=== PATIENT | male | born 1960 | race American Indian/Alaskan Native ===

== ENCOUNTER 2016-03-11 10:56 | Inpatient (IN) | payer MEDICARE, OTHER ==
[2016-03-11] MEDS ORDERED: ASPIRIN PO ONE (11:53)
[2016-03-11] MEDS ORDERED: ATIVAN PO ONE (12:04)
[2016-03-11] MEDS ORDERED: NITRO-BID 2% TP ONE (12:05)
[2016-03-11 12:35] LABS: Basophils % (Auto) 0.6 % (0.0-1.8); Eosinophils % (Auto) 4.4 % (0.0-4.3); Hematocrit 41.8 % (35.5-45.6); Hemoglobin 13.8 gm/dl (11.8-15.2); Mean Corpuscular HGB Conc 33 % (32-34); Mean Corpuscular Hemoglobin 27 pg (28-32); Mean Corpuscular Volume 83 fl (84-94); Platelet Count 184 K/mm3 (140-440); Red Blood Count 5.07 M/mm3 (3.65-5.03); White Blood Count 5.4 K/mm3 (4.5-11.0)
[2016-03-11 12:47] LABS: INR 1.07 (0.87-1.13)
[2016-03-11 12:48] LABS: Partial Thromboplastin Time 30.6 Sec. (24.2-36.6)
--- NOTE | 2016-03-11 12:48 | XRay Report ---
Single view chest: Compared to 01/17/16. History: Hypertension. Findings: Marked cardiomegaly. Trachea is midline. Pulmonary venous congestion with very faint lower lobe infiltrates. Stable pacemaker. Normal CP angles. Impression: Probable early CHF.
[2016-03-11 12:53] LABS: Creatine Kinase MB 10.1 ng/mL (0.0-4.0)
[2016-03-11 12:54] LABS: Alanine Aminotransferase 19 units/L (7-56); Albumin/Globulin Ratio 1.3 %; Alkaline Phosphatase 79 units/L (35-129); Anion Gap 19 mmol/L; BUN/Creatinine Ratio 20.83; Bilirubin,Total 0.5 mg/dL (0.1-1.2); Blood Urea Nitrogen 25 mg/dL (9-20); Calcium 9.2 mg/dL (8.4-10.2); Carbon Dioxide 23 mmol/L (22-30); Creatine Kinase 461 units/L (55-170); Glucose 147 mg/dL (75-100); Potassium 3.6 mmol/L (3.6-5.0); Sodium 141 mmol/L (137-145); Total Protein 7.2 g/dL (6.3-8.2)
[2016-03-11 12:54] LABS: Magnesium 2.1 mg/dL (1.7-2.3)
[2016-03-11 12:55] LABS: Bilirubin,Direct < 0.2 mg/dL (0-0.2); Bilirubin,Indirect 0.3 mg/dL
--- NOTE | 2016-03-11 13:03 | Emergency Department Report ---
ED General Adult HPI - General Chief complaint: Chest Pain Stated complaint: DEFIBRILATOR MISFIRE Time Seen by Provider: 03/11/16 11:25 Source: EMS Mode of arrival: Stretcher Limitations: No Limitations - History of Present Illness Initial comments: The patient states that his AICD has gone off 3 times this morning. He states he was getting out of bed on the first occasion when it went off. He dropped to his knees. He stated he laid on the carpet and it went off another time. EMS was notified. The patient was transported to this facility for evaluation. He states that the defibrillator went off another time and route. I have obtained the 12-lead EKGs with the purported defibrillation. The patient's underlying rhythm may be a period of atrial flutter with a rate overall at about 100. It does look like the patient had to have recurrent beats. Follow- up by that there is a spike which the sales process manager has apparently circled. I'm not certain if this is a defibrillation. It would not seem appropriate that the patient would be defibrillated at the time of this "spike". I doubt if it is actually a defibrillation at all. In any case the 12-lead EKGs do not show evidence of ventricular tachycardia. The EKG that appears to show a period of flutter is timed at 10:42 AM. A second EKG time and 1038 appears to show a sinus rhythm with PVC and/or aberrant conduction. EKG obtained on arrival did show normal sinus rhythm NSR that the patient is having PVCs to include 2 sets of couplets. The patient did not lose consciousness with any of these events. -: This morning Improves with: none Worsens with: none Associated Symptoms: denies other symptoms Treatments Prior to Arrival: none - Related Data Home Medications Medication Instructions Recorded Confirmed Last Taken Lisinopril [Zestril TAB] 20 mg PO QDAY 01/17/16 01/17/16 Unknown Previous Rx's Medication Instructions Recorded Last Taken Type Allopurinol [Zyloprim] 100 mg PO QDAY #30 tablet 07/30/15 Unknown Rx Aspirin [Aspirin BABY CHEW TAB] 81 mg PO QDAY #30 tab.chew 07/30/15 Unknown Rx Carvedilol [Coreg] 25 mg PO BID #60 tablet 07/30/15 Unknown Rx Colchicine [Colcrys] 0.6 mg PO BID #14 tablet 12/31/15 Unknown Rx Furosemide [Lasix TAB] 40 mg PO BID #60 tablet 01/17/16 Unknown Rx oxyCODONE /ACETAMINOPHEN [Percocet 1 tab PO Q6HR PRN #20 tablet 01/17/16 Unknown Rx 5/325] Allergies Allergy/AdvReac Type Severity Reaction Status Date / Time No Known Allergies Allergy Verified 07/14/14 22:55 ED Review of Systems ROS: Stated complaint: DEFIBRILATOR MISFIRE Other details as noted in HPI Constitutional: denies: chills, fever Eyes: denies: eye pain, eye discharge, vision change ENT: denies: ear pain, throat pain Respiratory: denies: cough, shortness of breath, wheezing Cardiovascular: as per HPI. denies: chest pain, palpitations Endocrine: no symptoms reported Gastrointestinal: denies: abdominal pain, nausea, diarrhea Genitourinary: denies: urgency, dysuria Musculoskeletal: denies: back pain, joint swelling, arthralgia Skin: denies: rash, lesions Neurological: denies: headache, weakness, paresthesias Psychiatric: denies: anxiety, depression Hematological/Lymphatic: denies: easy bleeding, easy bruising ED Past Medical Hx - Past Medical History Hx Hypertension: Yes Hx CVA: No Hx Heart Attack/AMI: No Hx Congestive Heart Failure: Yes Hx Diabetes: No Hx Deep Vein Thrombosis: No Hx Pulmonary Embolism: No Hx GERD: Yes (peptic ulcers) Hx Liver Disease: No Hx Renal Disease: No Hx Sickle Cell Disease: No Hx Arthritis: Yes Hx Headaches / Migraines: No Hx Seizures: No Hx Kidney Stones: No Hx Psychiatric Treatment: No Hx Asthma: No Hx COPD: No Hx Tuberculosis: No Hx HIV: No Additional medical history: "Heart problems". defibrillator implanted. knee arthritis - Surgical History Hx Coronary Stent: No Hx Open Heart Surgery: No Hx Pacemaker: No Hx Internal Defibrillator: Yes (2012) Hx Cholecystectomy: No Hx Appendectomy: No Hx Breast Surgery: No Additional Surgical History: abd surgery, defib - Social History Smoking Status: Never Smoker Substance Use Type: None - Medications Home Medications: Home Medications Medication Instructions Recorded Confirmed Last Taken Type Allopurinol [Zyloprim] 100 mg PO QDAY #30 tablet 07/30/15 01/17/16 Unknown Rx Aspirin [Aspirin BABY CHEW TAB] 81 mg PO QDAY #30 tab.chew 07/30/15 01/17/16 Unknown Rx Carvedilol [Coreg] 25 mg PO BID #60 tablet 07/30/15 01/17/16 Unknown Rx Colchicine [Colcrys] 0.6 mg PO BID #14 tablet 12/31/15 01/17/16 Unknown Rx Furosemide [Lasix TAB] 40 mg PO BID #60 tablet 01/17/16 Unknown Rx Lisinopril [Zestril TAB] 20 mg PO QDAY 01/17/16 01/17/16 Unknown History oxyCODONE /ACETAMINOPHEN [Percocet 1 tab PO Q6HR PRN #20 tablet 01/17/16 Unknown Rx 5/325] ED Physical Exam - General Limitations: No Limitations General appearance: alert, in no apparent distress - Head Head exam: Present: atraumatic, normocephalic - Eye Eye exam: Present: normal appearance. Absent: scleral icterus - ENT ENT exam: Present: mucous membranes moist - Neck Neck exam: Present: normal inspection - Respiratory Respiratory exam: Present: normal lung sounds bilaterally. Absent: respiratory distress - Cardiovascular Cardiovascular Exam: Present: regular rate, normal rhythm. Absent: systolic murmur, diastolic murmur, rubs, gallop - GI/Abdominal GI/Abdominal exam: Present: soft, normal bowel sounds. Absent: distended, tenderness, guarding, rebound, rigid - Rectal Rectal exam: Present: deferred - Extremities Exam Extremities exam: Present: normal inspection, normal capillary refill. Absent: joint swelling, calf tenderness - Back Exam Back exam: Present: normal inspection - Neurological Exam Neurological exam: Present: alert, oriented X3, CN II-XII intact. Absent: motor sensory deficit - Psychiatric Psychiatric exam: Present: normal affect, normal mood - Skin Skin exam: Present: warm, dry, intact, normal color. Absent: rash ED Course Vital Signs 03/11/16 03/11/16 11:30 11:34 Temperature 98.0 F Pulse Rate 85 Respiratory 20 Rate Blood Pressure 182/109 O2 Sat by Pulse 100 100 Oximetry - Reevaluation(s) Reevaluation #1: Made arrangements for a defibrillator interrogation which should occur at or about 2 PM today. Spoke with the [employer] rep. I described the prehospital EKG findings. I discussed the patient's Reece with Dr. Lim the hospitalist. I have consult to Dr. Miles. 03/11/16 13:10 03/11/16 13:12 Do note that the patient's troponin is slightly elevated. I have reviewed the previous records of Dr. Hernandez who stated that the patient has a nonischemic cardiomyopathy. The patient states that he has had a prior cardiac catheterization. ED Medical Decision Making - Lab Data Result diagrams: 03/11/16 11:40 03/11/16 11:40 Laboratory Results - last 24 hr 03/11/16 03/11/16 03/11/16 11:40 11:40 11:40 WBC 5.4 RBC 5.07 H Hgb 13.8 Hct 41.8 MCV 83 L MCH 27 L MCHC 33 RDW 15.0 Plt Count 184 Lymph % (Auto) 19.1 [place] % (Auto) 9.3 H Eos % (Auto) 4.4 H Baso % (Auto) 0.6 Lymph # 1.0 L [place] # 0.5 Eos # 0.2 Baso # 0.0 Seg Neutrophils % 66.6 Seg Neutrophils # 3.6 PT 13.8 INR 1.07 APTT 30.6 Sodium 141 Potassium 3.6 Chloride 103.0 Carbon Dioxide 23 Anion Gap 19 BUN 25 H Creatinine 1.2 Estimated GFR > 60 BUN/Creatinine Ratio 20.83 Glucose 147 H Calcium 9.2 Magnesium Total Bilirubin 0.5 Direct Bilirubin < 0.2 Indirect Bilirubin 0.3 AST 25 ALT 19 Alkaline Phosphatase 79 Total Creatine Kinase 461 H CK-MB (CK-2) 10.1 H CK-MB (CK-2) Rel Index 2.1 Troponin T 0.034 H NT-Pro-B Natriuret Pep Total Protein 7.2 Albumin 4.0 Albumin/Globulin Ratio 1.3 Triglycerides 92 Cholesterol 86 LDL Cholesterol Direct 38 L HDL Cholesterol 30 L Cholesterol/HDL Ratio 2.86 03/11/16 11:45 WBC RBC Hgb Hct MCV MCH MCHC RDW Plt Count Lymph % (Auto) [place] % (Auto) Eos % (Auto) Baso % (Auto) Lymph # [place] # Eos # Baso # Seg Neutrophils % Seg Neutrophils # PT INR APTT Sodium Potassium Chloride Carbon Dioxide Anion Gap BUN Creatinine Estimated GFR BUN/Creatinine Ratio Glucose Calcium Magnesium 2.1 Total Bilirubin Direct Bilirubin Indirect Bilirubin AST ALT Alkaline Phosphatase Total Creatine Kinase CK-MB (CK-2) CK-MB (CK-2) Rel Index Troponin T NT-Pro-B Natriuret Pep 722.7 Total Protein Albumin Albumin/Globulin Ratio Triglycerides Cholesterol LDL Cholesterol Direct HDL Cholesterol Cholesterol/HDL Ratio - EKG Data -: EKG Interpreted by Me EKG shows normal: sinus rhythm - EKG Data Interpretation: other (left anterior fascicular block VH intraventricular conduction delay) - Radiology Data interpreted by me: S x-ray showed cardiomyopathy and possibly some CHF. Critical care attestation.: If time is entered above; I have spent that time in minutes in the direct care of this critically ill patient, excluding procedure time. ED Disposition Clinical Impression: AICD discharge, Nonischemic cardiomyopathy, History of atrial fibrillation, Uncontrolled hypertension CHF (congestive heart failure) Qualifiers: Congestive heart failure type: unspecified congestive heart failure type Congestive heart failure chronicity: chronic Qualified Code(s): I50.9 - Heart failure, unspecified Disposition: OP ADMITTED IP TO THIS HOSP Is pt being admited?: Yes Does the pt Need Aspirin: Yes Condition: Stable Instructions: Hypertension (ED) Time of Disposition: 13:16
[2016-03-11 13:06] LABS: Cholesterol 86 mg/dL (50-199); HDL Cholesterol 30 mg/dL (40-59); LDL Cholesterol,Direct 38 mg/dL (50-130); Triglycerides 92 mg/dL (2-149)
--- NOTE | 2016-03-11 16:05 | History and Physical Report ---
History of Present Illness Date of examination: 03/11/16 Chief complaint: Defibrillator firing History of present illness: Patient is a 55-year-old man with a history of AICD, pacemaker, nonischemic cardiomyopathy, CHF and hypertension who presents with acute episode of defibrillator firing 3 causing severe pains in carpet holt and falls and weakness and dizziness and headaches due to the shots. [employer] defibrillator was interrogated and he had 1 episode of sustained V. tach, 1 episode of V. fib and 1 episode of atrial fibrillation on 3 different occasions; they were all successfully defibrillated. Currently he is denying any chest pain or any other symptoms. He was seen by health benefits specialist Dr. Kary Miles week ago per patient. Past History Past Medical History: other (as hpi) Past Surgical History: Other (aicd, PUD surgery >20yrs ago) Social history: full code. denies: smoking, alcohol abuse, prescription drug abuse, IV drug use Family history: cancer, hypertension (mother) Medications and Allergies Allergies Allergy/AdvReac Type Severity Reaction Status Date / Time No Known Allergies Allergy Verified 07/14/14 22:55 Home Medications Medication Instructions Recorded Confirmed Last Taken Type Allopurinol [Zyloprim] 100 mg PO QDAY #30 tablet 07/30/15 01/17/16 Unknown Rx Aspirin [Aspirin BABY CHEW TAB] 81 mg PO QDAY #30 tab.chew 07/30/15 01/17/16 Unknown Rx Carvedilol [Coreg] 25 mg PO BID #60 tablet 07/30/15 01/17/16 Unknown Rx Colchicine [Colcrys] 0.6 mg PO BID #14 tablet 12/31/15 01/17/16 Unknown Rx Furosemide [Lasix TAB] 40 mg PO BID #60 tablet 01/17/16 Unknown Rx Lisinopril [Zestril TAB] 20 mg PO QDAY 01/17/16 01/17/16 Unknown History oxyCODONE /ACETAMINOPHEN [Percocet 1 tab PO Q6HR PRN #20 tablet 01/17/16 Unknown Rx 5/325] Active Meds: Active Medications Heparin Sodium (Porcine) (Heparin) 5,000 unit SUB-Q Q8HR JUD Review of Systems All systems: negative (as HPI and all other ROS reviewed and negative.) Exam - Physical Exam Narrative exam: GEN: WDWN, obese NAD, AWAKE, ALERT, ORIENTATED x 3 HEENT: NCAT, PERRL, EOMI, OP CLEAR NECK: SUPPLE, NO THYROMEGALY, equivocal JVD, NO LAD CVS: Regular irregular, NORMAL S1S2 LUNGS/CHEST: CTA B, NORMAL CHEST EXPANSION B, GOOD AIR ENTRY B ABD: SOFT NTND, GBS, NO REBOUND OR GUARDING EXT/SKIN: NO new SIGNIFICANT EDEMA OR RASH MSK: FROM X 4 EXTREMITIES NEURO: CN 2-12 GROSSLY INTACT, NO new FOCAL DEFICITS PSY: CALM - Constitutional Vitals: Temp Pulse Resp BP Pulse Ox 98.0 F 85 20 182/109 100 03/11/16 11:30 03/11/16 11:30 03/11/16 11:30 03/11/16 11:30 03/11/16 11:34 Results - Labs CBC & Chem 7: 03/11/16 11:40 03/11/16 11:40 Labs: Abnormal lab results 03/11/16 03/11/16 03/11/16 Range/Units 11:40 11:40 14:52 RBC 5.07 H (3.65-5.03) M/mm3 MCV 83 L (84-94) fl MCH 27 L (28-32) pg [place] % (Auto) 9.3 H (0.0-7.3) % Eos % (Auto) 4.4 H (0.0-4.3) % Lymph # 1.0 L (1.2-5.4) K/mm3 BUN 25 H (9-20) mg/dL Glucose 147 H (75-100) mg/dL Total Creatine Kinase 461 H (55-170) units/L CK-MB (CK-2) 10.1 H (0.0-4.0) ng/mL Troponin T 0.034 H 0.047 H D (0.00-0.029) ng/mL LDL Cholesterol Direct 38 L (50-130) mg/dL HDL Cholesterol 30 L (40-59) mg/dL - Imaging and Cardiology EKG: image reviewed Assessment and Plan Patient is a 55-year-old man with a history of AICD, pacemaker, nonischemic cardiomyopathy, CHF and hypertension who presents with acute episode of defibrillator firing 3 causing severe intermittent pains, falls, weakness, dizziness and headaches due to the shokcs. [employer] defibrillator was interrogated and he had 1 episode of sustained V. tach, 1 episode of V. fib and 1 episode of atrial fibrillation on 3 different occasions; they were all successfully defibrillated. Currently he is denying any chest pain or any other symptoms. He was seen by health benefits specialist Dr. Kary Miles week ago per patient. -VT -Vfib -Afib with RVR -Accelerated hypertension Watch on telemetry, Dr. Miles will determine if he needs antiarrhythmics
[2016-03-11] MEDS ORDERED: ASPIRIN ONE (18:29)
[2016-03-11] MEDS ORDERED: ATIVAN ONE (18:30)
[2016-03-11] MEDS ORDERED: ZESTRIL ONE (18:40)
[2016-03-11 20:05] LABS: Creatine Kinase MB 9.6 ng/mL (0.0-4.0)
[2016-03-11] MEDS: COREG PO SCH (21:57)
[2016-03-11] MEDS: LASIX PO SCH (21:57)
[2016-03-11] MEDS: ZESTRIL PO SCH (22:26)
--- NOTE | 2016-03-12 01:18 | Admit Criteria Form ---
Admission Criteria Documentation: CARDIOLOGY GRG Clinical Indications for Admission to Inpatient Care ( Place 'X' for any and all applicable criteria): Hospital admission is needed for appropriate care of the patient because of ANY ONE of the following (1): [ ] I. Hemodynamic instability as indicated by ALL of the following (1)(2)(3) (4)(5) [ ]a) Vital signs or other findings not as expected for chronic patient condition or baseline [ ]b) Instability indicated by ANY ONE of the following: [ ]i) Hypotension [ ]ii) Symptomatic Tachycardia unresponsive to treatment ( e.g., analgesia, fluids, sedation as indicated) [ ]iii) Inadequate perfusion indicated by ANY ONE of the following: [ ] 1) Lactic acidosis (> 2 mmol/L) [ ] 2) New abnormal capillary refill (> 3 seconds) [ ] 3) Reduced urine output [ ] 4) New altered mental status [ ]iv) Orthostatic vital sign changes unresponsive to treatment (e.g., fluids) [ ]v) IV inotropic or vasopressor medication required to maintain adequate blood pressure or perfusion [ ] II. Severe heart failure as indicated by ANY ONE of the following(17)(18) [ ]a) Respiratory distress [ ]b) Hypotension [ ]c) Anasarca (refractory to outpatient therapy) [ ]d) Cardiac arrhythmias of immediate concern [ ]e) Myocardial ischemia [ ] III. Cardiac arrhythmias or findings of immediate concern indicated by ANY ONE of the following (19)(20): [ ] a) Heart rhythms that are inherently dangerous or unstable indicated by ANY ONE of the following (21)(22)(23): [ ] i) Resuscitated ventricular fibrillation or cardiac arrest [ ] ii) Ventricular escape rhythm [ ] iii) Sustained ventricular tachycardia (30 seconds or more of ventricular rhythm at greater than 100 beats per minute) [ ] iv) Nonsustained ventricular tachycardia and ANY ONE of the following: [ ] 1) Suspected cardiac ischemia as cause or consequence of ventricular tachycardia [ ] 2) In setting of acute myocarditis [ ] b) Unstable cardiac conduction defects indicated by ANY ONE of the following(23)(24)(25) [ ] i) Type II second-degree atrioventricular block [ ]ii) Third-degree atrioventricular block [ ]iii) New-onset left bundle branch block with suspected myocardial ischemia [ ]c) Any heart rhythm and ANY ONE of the following (21)(22)(26)(27) (28) [ ] i) Continuous long-term ECG monitoring needed (e.g., initiation of drug requiring monitoring for more than 24 hours) [ ] ii) Patient has automatic implanted cardioverter defibrillator that is repeatedly firing, malfunctioning, or in need of immediate adjustment of settings beyond the scope of ambulatory or observation care [ ]d) Heart rhythms of concern due to ANY ONE of the following: [ ] i) Hypotension [ ] ii) Respiratory distress [ ] iii) Association with other significant symptoms (e.g., bradycardia with syncope or ongoing dizziness, supraventricular tachycardia with chest pain (14)(15)(17) [ ] IV. Monitoring for cardiac contusion beyond the scope of observation care needed [A](30)(31)(32) [ ] V. Surgical or device complication (e.g., valve replacement complication , pacemaker dysfunction) (35)(41)(44)(45)(46) [ ] . Inpatient palliative care needed. [B](49) Also use Inpatient Palliative Care Criteria [ ] VII. Nonbacterial thrombotic (marantic) endocarditis (36)(43)(47)(48) [X ] VIII. Cardiology condition, symptom, or finding for which emergency and observation care has failed or are not considered appropriate. [ ] IX. Acute valvular disease requiring inpatient as indicated by ANY ONE of the following (41) [ ]a) Acute valvular regurgitation (42) [ ]b) Noninfectious valvulitis (43) [ ]c) Obstructive valve thrombosis [ ]d) Paravalvular leak [ ]e) Other significant valvular disorder remaining after emergency or observation level of care (as appropriate) [ ]X. Pericardial disease requiring inpatient treatment as indicated by ANY ONE of the following (33)(34)(35)(36)(37) [ ]a) Suspected tamponade (38)(39)(40) [ ]b) Hemopericardium [ ]c) Other significant pericardial disorder remaining after emergency or observation level of care (as appropriate) [ ] XI. Cardiac ischemia beyond scope of emergency and observation care. [ ] XII. Hypertension requiring inpatient treatment as indicated by ANY ONE of the following (6)(7)(8) [ ]a) SBP greater than 220 mm Hg or DBP greater than 120 mmHg despite treatment [ ]b) SBP greater than 140 mm Hg or DBP greater than 100 mm Hg with evidence of acute end organ damage as indicated by ANY ONE of the following [ ] i) Altered mental status [ ] ii) Acute renal failure as indicated by new onset of ANY ONE of the following (9)(10)(11)(12)(13) [ ]1) 3-fold rise in serum creatinine from baseline [ ]2) Serum creatinine greater than 4 mg/dL ( 354 micromoles/L) with acute rise greater than 0.5 mg/dL (44.2 micromoles/L) [ ]3) Reduction of more than 75% in estimated glomerular filtration rate from baseline [ ]4) Estimated glomerular filtration rate less than 35 mL/min/1.73m2 (0.59 mL/sec/1.73m2) in child up to 18 years of age [ ]5) Cessation of urine output indicated by ALL of the following [ ]A. Adequate volume status [ ]B. Inadequate urine output as indicated by ANY ONE of the following [ ]a. Urine output less than 0.3 mL/kg/hr for 24 hours [ ]b. Anuria (urine output less than 0.1 mL/kg/hr) for 12 hours [ ] iii) Aortic dissection [ ] iv) Myocardial Ischemia [ ] v) Left ventricular heart failure [ ]vi) Retinal Hemorrhage [ ]vii) Other significant finding [ ]c) Hypertension in child requiring inpatient treatment as indicated by ALL of the following(14)(15)(16) [ ] i) Outpatient treatment not effective, not available, or not appropriate [ ]ii) SBP or DBP greater than 95th percentile for age [ ]iii) Evidence of acute end organ damage as indicated by ANY ONE of the following [ ]1) Altered mental status [ ]2) Acute renal failure as indicated by new onset of ANY ONE of the following(9)(10)(11)(12)(13) [ ]A. 3-fold rise in serum creatinine from baseline [ ]B. Serum creatinine greater than 4 mg/dL (354 micromoles/L) with acute rise greater than 0.5 mg/dL (44.2 micromoles/L) [ ]C. Reduction of more than 75% in estimated glomerular filtration rate from baseline [ ]D. Estimated glomerular filtration rate less than 35 mL/min/1.73m2 (0.59 mL/sec/1.73m2) in child up to 18 years of age [ ]E. Cessation of urine output indicated by ALL of the following [ ]a. Adequate volume status [ ]b. Inadequate urine output as indicated by ANY ONE of the following [ ]i) Urine output less than 0.3 mL/kg/hr for 24 hours [ ]ii) Anuria ( urine output less than 0.1 mL/kg/hr) for 12 hours [ ]3) Severe headache [ ]4) Visual disturbance [ ]5) Retinal hemorrhage [ ]6) Other significant finding [ ]XIII. Complications of transplanted heart indicated by ANY ONE of the following(61): [ ]a) Acute graft rejection requiring inpatient management (eg, intravenous immunosuppression)(62)(63) [ ]b) Acute graft heart failure indicated by ANY ONE of the following(64): [ ]i) Hemodynamic instability [ ]ii) Cardiac arrhythmias of immediate concern [ ]iii) Pulmonary edema that is very severe (eg, mechanical ventilation needed, imminent or likely, need for 100% oxygen to keep oxygen saturation above 90%) [ ]iv) Pulmonary edema that is persistent as indicated by ALL of the following: [ ]1) New need for oxygen therapy to keep oxygen saturation above 90% (or increased FiO2 need from baseline) [ ]2) Has not improved sufficiently with emergency department or observation care IV diuretics or other heart failure treatments[E] [ ]v) Altered mental status that is severe or persistent [ ]vi) Increased creatinine (new on laboratory test) with reduction of more than 50% in estimated glomerular filtration rate from baseline [ ]vii) Progressively (ongoing) rising creatinine (known from past laboratory test) with reduction of more than 25% in estimated glomerular filtration rate from baseline [ ]viii) Acute renal failure [ ]ix) Acute peripheral ischemia (eg, examination shows pulseless, cool, mottled, or cyanotic extremity) [ ]x) Pulmonary artery catheter monitoring needed [ ]xi) Other sign or symptom of heart failure requiring inpatient treatment (ie, too severe or not responsive to outpatient and observation care treatment) [ ]c) Infection requiring inpatient management (eg, Hemodynamic instability, need for intravenous antimicrobial treatment)(66)(67)(68)(69)(70) [ ]d) Cardiac allograft vasculopathy requiring inpatient management ( eg evidence of cardiac ischemia)(71) [ ]e) Other complication of transplanted heart (eg, stroke, severe pulmonary hypertension, severe valvular dysfunction) requiring inpatient management(72) The original [facility] [employer] content created by [facility] has been revised. The portions of the content which have been revised are identified through the use of italic text or in bold, and [facility] has neither reviewed nor approved the modified material. All other unmodified content is copyright [facility] [employer]. Please see references footnoted in the original [facility] [employer] edition 2016 Admission Criteria Met: Yes
[2016-03-12 02:00] LABS: Creatine Kinase MB 7.2 ng/mL (0.0-4.0)
[2016-03-12 07:11] LABS: Hematocrit 43.8 % (35.5-45.6); Hemoglobin 14.3 gm/dl (11.8-15.2); Mean Corpuscular HGB Conc 33 % (32-34); Mean Corpuscular Hemoglobin 27 pg (28-32); Mean Corpuscular Volume 83 fl (84-94); Platelet Count 186 K/mm3 (140-440); Red Cell Distribution Width 15.4 % (13.2-15.2); White Blood Count 5.7 K/mm3 (4.5-11.0)
[2016-03-12 07:54] LABS: Anion Gap 18 mmol/L; BUN/Creatinine Ratio 18.18; Blood Urea Nitrogen 20 mg/dL (9-20); Calcium 9.5 mg/dL (8.4-10.2); Carbon Dioxide 25 mmol/L (22-30); Chloride 102.6 mmol/L (98-107); Glucose 97 mg/dL (75-100); Potassium 3.9 mmol/L (3.6-5.0); Sodium 142 mmol/L (137-145)
[2016-03-12] MEDS: PERCOCET 5/325 PO PRN ×2 (09:08→16:06)
[2016-03-12] MEDS: ZESTRIL PO SCH (09:09)
[2016-03-12] MEDS: LASIX PO SCH (09:09)
[2016-03-12] MEDS: COREG PO SCH (09:09)
[2016-03-12] MEDS ORDERED: ZYLOPRIM PO SCH (10:00)
[2016-03-12] MEDS ORDERED: BABY ASPIRIN PO SCH (10:00)
[2016-03-12] MEDS: HEPARIN SUB-Q SCH ×2 (12:24→14:49)
[2016-03-12 12:51] VITALS: BP 125/85
--- NOTE | 2016-03-12 13:45 | Consultation ---
History of Present Illness Consult date: 03/12/16 Requesting physician: SAGAR VASQUEZ Consult reason: arrhythmia History of present illness: 55-year-old male with a past medical history of a cardiomyopathy ejection fraction 25-30%, moderate concentric left ventricular hypertrophy, moderate mitral regurgitation, dual chamber [employer] Sai cardiac defibrillator, hypertension who presents to [facility] emergency department after receiving cardiac defibrillator shocks. Interrogation of the patient's cardiac defibrillator revealed that he received 3 ICD shocks for appropriate therapy. The patient apparently had sustained VF. Interrogation of the patient's device revealed that all of his measurements intrinsic impedances and thresholds were within normal limits. In the emergency department his electrolytes were within normal limits. Patient reports he is doing nothing at the time when he developed these type of ventricular arrhythmias he stated that he was lying in bed and felt dizzy and lightheaded. Past History Past Medical History: arrhythmia, hypertension, other (as hpi) Past Surgical History: Other (aicd, PUD surgery >20yrs ago) Social history: full code. denies: smoking, alcohol abuse, prescription drug abuse, IV drug use Family history: cancer, hypertension (mother) Medications and Allergies Allergies Allergy/AdvReac Type Severity Reaction Status Date / Time No Known Allergies Allergy Verified 07/14/14 22:55 Home Medications Medication Instructions Recorded Confirmed Last Taken Type Allopurinol [Zyloprim] 100 mg PO QDAY #30 tablet 07/30/15 01/17/16 Unknown Rx Aspirin [Aspirin BABY CHEW TAB] 81 mg PO QDAY #30 tab.chew 07/30/15 01/17/16 Unknown Rx Carvedilol [Coreg] 25 mg PO BID #60 tablet 07/30/15 01/17/16 Unknown Rx Colchicine [Colcrys] 0.6 mg PO BID #14 tablet 12/31/15 01/17/16 Unknown Rx Furosemide [Lasix TAB] 40 mg PO BID #60 tablet 01/17/16 Unknown Rx Lisinopril [Zestril TAB] 20 mg PO QDAY 01/17/16 01/17/16 Unknown History oxyCODONE /ACETAMINOPHEN [Percocet 1 tab PO Q6HR PRN #20 tablet 01/17/16 Unknown Rx 5/325] Active Meds: Active Medications Allopurinol (Zyloprim) 100 mg PO QDAY [facility] Last Admin: 03/12/16 09:09 Dose: 100 mg Aspirin (Baby Aspirin) 81 mg PO QDAY [facility] Last Admin: 03/12/16 09:09 Dose: 81 mg Carvedilol (Coreg) 25 mg PO BID [facility] Last Admin: 03/12/16 09:09 Dose: 25 mg Furosemide (Lasix) 40 mg PO BID [facility] Last Admin: 03/12/16 09:09 Dose: 40 mg Heparin Sodium (Porcine) (Heparin) 5,000 unit SUB-Q Q8HR [facility] Last Admin: 03/12/16 12:24 Dose: Not Given Lisinopril (Zestril) 20 mg PO QDAY [facility] Last Admin: 03/12/16 09:09 Dose: 20 mg Oxycodone/Acetaminophen (Percocet 5/325) 1 tab PO Q6HR PRN PRN Reason: Pain Last Admin: 03/12/16 09:08 Dose: 1 tab Review of Systems Constitutional: no weight loss, no weight gain Ears, nose, mouth and throat: deferred Cardiovascular: lightheadedness, no chest pain, no orthopnea, no palpitations Respiratory: no cough, no hemoptysis, no shortness of breath Gastrointestinal: no abdominal pain, no nausea, no vomiting Musculoskeletal: no neck stiffness, no neck pain Integumentary: no rash, no pruritis Neurological: no convulsions, no aphasia, no change in speech Psychiatric: anxiety Endocrine: no cold intolerance, no heat intolerance Hematologic/Lymphatic: no easy bruising, no easy bleeding Physical Examination Vital Signs BP 172/105 03/11/16 11:09 General appearance: no acute distress HEENT: Positive: PERRL Neck: Positive: neck supple, trachea midline Cardiac: Positive: Reg Rate and Rhythm Lungs: Positive: Normal Exam, clear to auscultation Neuro: Positive: Grossly Intact Abdomen: Positive: Unremarkable, Soft, Active Bowel Sounds Male genitourinary: Positive: deferred Skin: Positive: Clear. Negative: Rash Extremities: Present: normal, warm. Absent: edema Results 03/12/16 06:16 03/12/16 06:16 Cardiac Enzymes 03/11/16 03/12/16 Range/Units 19:25 01:05 CK-MB (CK-2) 9.6 H 7.2 H (0.0-4.0) ng/mL CBC 03/12/16 Range/Units 06:16 WBC 5.7 (4.5-11.0) K/mm3 RBC 5.30 H (3.65-5.03) M/mm3 Hgb 14.3 (11.8-15.2) gm/dl Hct 43.8 (35.5-45.6) % Plt Count 186 (140-440) K/mm3 Comprehensive Metabolic Panel 03/12/16 Range/Units 06:16 Sodium 142 (137-145) mmol/L Potassium 3.9 (3.6-5.0) mmol/L Chloride 102.6 (98-107) mmol/L Carbon Dioxide 25 (22-30) mmol/L BUN 20 (9-20) mg/dL Creatinine 1.1 (0.8-1.5) mg/dL Glucose 97 (75-100) mg/dL Calcium 9.5 (8.4-10.2) mg/dL - Imaging and Cardiology Echo: report reviewed (ECHO 01/20: 1. The left ventricular ejection fraction is 25-30%, moderate concentric left ventricular hypertrophy, moderate mitral regurgitation) Cardiac cath: report reviewed ([facility] 03/21/10: Normal coronaries, codominant system) EKG interpretations - Telemetry EKG Rhythm: Sinus Rhythm Assessment and Plan 55-year-old male with moderate mitral regurgitation, moderate left ventricular hypertrophy, a nonischemic: Ejection fraction 25%, dual chamber cardiac defibrillator St. Sai, hypertension who presented with 3 ICD shocks. The patient was monitored overnight he has not had any recurrence of significant arrhythmias or cardiac ICD discharges. The patient is followed by Dr. Kail[facility]. He should follow-up with him in 2-3 weeks. The patient has a device check scheduled 09/04/2016 [facility]. I'm recommending that the patient continue his current medication regimen. We will not initiate any antiarrhythmics at this time. I' ve instructed the patient to walk around today to make sure that he is stable. If he has no recurrence of arrhythmias with walking around would recommend discharge home today.
--- NOTE | 2016-03-12 14:35 | Discharge Summary ---
Providers - Providers Date of Admission: 03/11/16 16:20 Attending physician: MARIEL LEE Primary care physician: AYANNA GREGORY MD Hospitalization Condition: Stable Hospital course: 55 YO male admitted for AICD firing. Pt admitted to telemetry. Pt convalesced well during hospital course with improvement in symptoms. Cardiology consulted. Pt medically optimized and back to usual state of health. Pt evaluated prior to discharge but no significant new physical exam findings. Pt discharged home and instructed to f/u pcp 1wk, cardiology as directed. 34 minutes dedicated to patient discharge and education. Disposition: DISCHARGED TO HOME OR SELFCARE - Discharge Diagnoses (1) AICD discharge Status: Acute (2) Acute on chronic systolic heart failure Status: Acute (3) Anxiety Status: Acute (4) Atrial fibrillation Status: Chronic Qualifiers: Atrial fibrillation type: A (5) Hyperlipidemia Status: Chronic Qualifiers: Hyperlipidemia type: H (6) Hypertension Status: Chronic Qualifiers: Hypertension type: H Core Measure Documentation - Palliative Care Palliative Care/ Comfort Measures: Not Applicable - Core Measures Any of the following diagnoses?: none Exam - Constitutional Vitals: Temp Pulse Resp BP Pulse Ox 97.6 F 68 14 125/85 95 03/12/16 08:40 03/12/16 12:50 03/12/16 12:50 03/12/16 12:50 03/12/16 10:00 General appearance: Present: no acute distress, well-nourished - EENT Eyes: Present: PERRL ENT: hearing intact, clear oral mucosa - Neck Neck: Present: supple, normal ROM - Respiratory Respiratory effort: normal Respiratory: bilateral: CTA - Cardiovascular Heart Sounds: Present: S1 & S2. Absent: rub, click - Extremities Extremities: pulses symmetrical, No edema Peripheral Pulses: within normal limits - Abdominal General gastrointestinal: Present: soft, non-tender, non-distended, normal bowel sounds Male genitourinary: Present: normal - Integumentary Integumentary: Present: clear, warm, dry - Musculoskeletal Musculoskeletal: gait normal, strength equal bilaterally - Psychiatric Psychiatric: appropriate mood/affect, intact judgment & insight - Neurologic Neurologic: CNII-XII intact, moves all extremities Plan Activity: advance as tolerated Follow up with: [facility] [Provider Group] - 7 Days PRIMARY CARE, [Primary Care Provider] - 3-5 Days
--- NOTE | 2016-03-21 08:35 | Query- Chest Pain ---
Juliet Wagoner Date:_03/21/16 [facility] Coordinator/CDS:Ignacia/Deep Sneed Phone#:__[phone] Exercise your independent professional judgment when responding to query. Questions asked do not imply a particular answer is desired or expected. We greatly appreciate your clarification on this issue. Clinical Documentation States: 55 Y/O Male admitted on 03/11/16 with history of AICD, pacemaker, CHF and HTN presents with acute episode of defibrillator firing x3 causing severe pains. Clinical Findings Show: Pacemaker interrogated showing 1 episode of Ventricular fibrillation, 1 episode of Ventricular tachycardia and 1 episode of atrial fibrillation on 3 different occasions Please document the etiology of Chest Pain: [ ] Myocardial Infarction [ ] Pneumonia [ ] Mediastinitis [ ] Costochondritis [ ] Pulmonary Embolism [ ] Coronary Artery Disease [ ] GERD [x ] Other:__AICD firing [ ] Comment/Explanation: Present on Admission: [ ] Yes (Y) [ ] Clinically undeterminable (W) [ ] No(N) Please document response in your Progress Notes and/or Discharge Summary and indicate if the condition was present on admission. MTDD
== END 2016-03-12 16:32 | disposition home or self-care (01) | DRG 314 ==
LOC: ED 10:56 → 4A 16:20
PROVIDERS: ADMIT Internal Medicine; ATTEND Internal Medicine
PROC: 4B02XTZ Measurement of Cardiac Defibrillator, External Approach (ICD-10-PCS; principal; 2016-03-11)
DX: T82.847A Pain due to cardiac prosthetic devices, implants and grafts, initial encounter (principal); I49.01 Ventricular fibrillation; I42.9 Cardiomyopathy, unspecified; I47.2 Ventricular tachycardia; I50.9 Heart failure, unspecified; K21.9 Gastro-esophageal reflux disease without esophagitis; M19.90 Unspecified osteoarthritis, unspecified site; I48.91 Unspecified atrial fibrillation; I11.0 Hypertensive heart disease with heart failure; Z82.49 Family history of ischemic heart disease and other diseases of the circulatory system; Z80.9 Family history of malignant neoplasm, unspecified
CPT/HCPCS: 36415; 71010; 80048; 80061; 80074; 82550; 82553; 83735; 83880; 84484; 85025; 85027; 85610; 85730; 93005; 93010; 94760

== ENCOUNTER 2016-03-27 14:07 | Emergency (ER) | payer MEDICARE, OTHER ==
[2016-03-27] MEDS ORDERED: APRESOLINE IV ONE (15:46)
[2016-03-27 16:02] VITALS: BP 108/62
[2016-03-27 16:13] LABS: Basophils % (Auto) 0.7 % (0.0-1.8); Eosinophils % (Auto) 3.3 % (0.0-4.3); Hematocrit 41.4 % (35.5-45.6); Hemoglobin 13.4 gm/dl (11.8-15.2); Mean Corpuscular HGB Conc 32 % (32-34); Mean Corpuscular Hemoglobin 27 pg (28-32); Mean Corpuscular Volume 82 fl (84-94); Platelet Count 154 K/mm3 (140-440); Red Blood Count 5.06 M/mm3 (3.65-5.03); Red Cell Distribution Width 15.4 % (13.2-15.2); White Blood Count 6.6 K/mm3 (4.5-11.0)
--- NOTE | 2016-03-27 16:15 | XRay Report ---
PORTABLE CHEST INDICATION: Chest pain. COMPARISON: 03/22/2016 FINDINGS: Portable, frontal chest radiograph again demonstrates mild cardiomegaly, slight aortic knob calcifications and left AICD with dual-chamber leads. No pleural effusions or CHF. Stable bones. EKG leads. CONCLUSION: Stable pacemaker and mild cardiomegaly, as described. Thank you for the opportunity to participate in this patient's care.
[2016-03-27] MEDS ORDERED: NORCO 5/325 PO ONE (16:28)
[2016-03-27 16:31] LABS: Anion Gap 17 mmol/L; Blood Urea Nitrogen 18 mg/dL (9-20); Calcium 9.2 mg/dL (8.4-10.2); Carbon Dioxide 23 mmol/L (22-30); Chloride 99.7 mmol/L (98-107); Glucose 108 mg/dL (75-100); Potassium 3.8 mmol/L (3.6-5.0); Sodium 136 mmol/L (137-145)
--- NOTE | 2016-03-27 16:44 | Emergency Department Report ---
HPI - General Chief Complaint: Chest Pain Time Seen by Provider: 03/27/16 15:49 - HPI HPI: The patient is a 55-year-old male who presents for evaluation of chest pain. The patient reports chest pain since 1 PM, mild, currently 3/10 in severity, right-sided, tightness like in quality, constant since onset. The patient denies fever, dyspnea, syncope, hemoptysis, unilateral leg swelling, recent immobilization, history of DVT or PE, recent cancer. ED Past Medical Hx - Past Medical History Previous Medical History?: Yes Hx Hypertension: Yes Hx CVA: No Hx Heart Attack/AMI: No Hx Congestive Heart Failure: Yes Hx Diabetes: No Hx Deep Vein Thrombosis: No Hx Pulmonary Embolism: No Hx GERD: Yes (peptic ulcers) Hx Liver Disease: No Hx Renal Disease: No Hx Sickle Cell Disease: No Hx Arthritis: Yes Hx Headaches / Migraines: No Hx Seizures: No Hx Kidney Stones: No Hx Psychiatric Treatment: No Hx Asthma: No Hx COPD: No Hx Tuberculosis: No Hx HIV: No Additional medical history: "Heart problems". defibrillator implanted. knee arthritis - Surgical History Hx Coronary Stent: No Hx Open Heart Surgery: No Hx Pacemaker: No Hx Internal Defibrillator: Yes (2012) Hx Cholecystectomy: No Hx Appendectomy: No Hx Breast Surgery: No Additional Surgical History: abd surgery, defib - Social History Smoking Status: Never Smoker Substance Use Type: None - Medications Home Medications: Home Medications Medication Instructions Recorded Confirmed Last Taken Type Allopurinol [Zyloprim] 100 mg PO QDAY #30 tablet 07/30/15 03/22/16 03/21/16 Rx Aspirin [Aspirin BABY CHEW TAB] 81 mg PO QDAY #30 tab.chew 07/30/15 03/22/16 Rx Colchicine [Colcrys] 0.6 mg PO BID #14 tablet 12/31/15 03/22/16 03/21/16 Rx Lisinopril [Zestril TAB] 2.5 mg PO QDAY 01/17/16 03/22/16 03/21/16 History AtorvaSTATin [Lipitor] 80 mg PO QHS 03/22/16 03/22/16 03/21/16 History Carvedilol [Coreg] 6.25 mg PO BID 03/22/16 03/22/16 03/21/16 History Furosemide [Lasix TAB] 40 mg PO QDAY 03/22/16 03/22/16 03/21/16 History Isosorb Dinit/Hydralazine [Bidil 1 each PO TID 03/22/16 03/22/16 03/21/16 History 20/37.5MG] ALPRAZolam [Xanax TAB] 0.25 mg PO Q12HR PRN #30 tablet 03/24/16 Unknown Rx amLODIPine [Norvasc] 10 mg PO DAILY tablet 03/24/16 Unknown Rx traMADol [Ultram 50 MG tab] 50 mg PO Q6HR PRN #10 tablet 03/27/16 Unknown Rx ED Review of Systems ROS: Stated complaint: CHEST PAIN Other details as noted in HPI Constitutional: denies: fever ENT: denies: throat or neck pain Respiratory: denies: cough, shortness of breath Cardiovascular: reports chest pain Endocrine: denies unexplained weight loss or gain Gastrointestinal: denies: abdominal pain, nausea Genitourinary: denies: dysuria Musculoskeletal: denies: leg swelling Skin: denies: rash Neurological: denies: headache Hematological/Lymphatic: denies: easy bleeding or easy bruising Psych: denies sadness or hopelessness Physical Exam - Physical Exam Vital Signs: Vital Signs 03/27/16 03/27/16 03/27/16 15:09 15:30 15:40 Pulse Rate 78 68 69 Respiratory 12 19 19 Rate Blood Pressure O2 Sat by Pulse 97 97 93 Oximetry 03/27/16 03/27/16 03/27/16 15:42 15:44 15:45 Pulse Rate 67 68 72 Respiratory 17 21 15 Rate Blood Pressure 108/62 O2 Sat by Pulse 95 93 94 Oximetry 03/27/16 03/27/16 03/27/16 15:46 15:48 15:50 Pulse Rate 68 66 76 Respiratory 21 22 19 Rate Blood Pressure 108/62 108/62 108/62 O2 Sat by Pulse 94 96 97 Oximetry 03/27/16 03/27/16 03/27/16 15:52 15:54 16:03 Pulse Rate 64 68 68 Respiratory 17 18 Rate Blood Pressure 108/62 108/62 108/62 O2 Sat by Pulse 95 96 Oximetry Physical Exam: General: well-nourished, well-developed, no acute distress Head: Normocephalic, atraumatic Eyes: normal sclera ENT: Mucous membranes are pink and moist Neck: trachea midline, neck supple, No neck stiffness, no cervical adenopathy Respiratory: Breath sounds equal bilaterally, no wheezing, rales, or rhonchi Cardio: S1 and S2 present, no murmurs, rubs, gallops, capillary refill is brisk Abdomen: Normoactive bowel sounds, soft abdomen, no rigidity, no guarding or rebound tenderness Musc: No pitting edema Skin: No rash Neuro: no facial drooping, normal speech Psych: Normal affect ED Course Vital Signs 03/27/16 03/27/16 03/27/16 15:09 15:30 15:40 Pulse Rate 78 68 69 Respiratory 12 19 19 Rate Blood Pressure O2 Sat by Pulse 97 97 93 Oximetry 03/27/16 03/27/16 03/27/16 15:42 15:44 15:45 Pulse Rate 67 68 72 Respiratory 17 21 15 Rate Blood Pressure 108/62 O2 Sat by Pulse 95 93 94 Oximetry 03/27/16 03/27/16 03/27/16 15:46 15:48 15:50 Pulse Rate 68 66 76 Respiratory 21 22 19 Rate Blood Pressure 108/62 108/62 108/62 O2 Sat by Pulse 94 96 97 Oximetry 03/27/16 03/27/16 03/27/16 15:52 15:54 16:03 Pulse Rate 64 68 68 Respiratory 17 18 Rate Blood Pressure 108/62 108/62 108/62 O2 Sat by Pulse 95 96 Oximetry ED Medical Decision Making - Lab Data Result diagrams: 03/27/16 15:56 03/27/16 15:56 - Medical Decision Making The patient was seen and examined by myself. The patient is placed on a barrel rifler hook and continuous pulse ox. On initial evaluation, the patient was found to be in no distress. EKG is unchanged from previous EKG one week ago. The patient is given a total of [place] for his pain. Labs and imaging are obtained. Chest x-ray is negative for pneumothorax, focal consolidation, pulmonary vascular congestion, pleural effusion, or other obvious acute cardiopulmonary disease process. Lab results were non-concerning including levels of troponin, WBC, hemoglobin, hematocrit, electrolytes, renal function. Medical records are reviewed and revealed that the patient received a stress test that was negative for ischemia, 2 weeks ago at [facility]. The patient was reevaluated and reported that their symptoms were markedly improved. The patient is stable for discharge with outpatient follow-up. The patient is given follow-up and return instructions. The patient expressed understanding and agreed with the plan. The patient is discharged in stable condition. Critical care attestation.: If time is entered above; I have spent that time in minutes in the direct care of this critically ill patient, excluding procedure time. ED Disposition Clinical Impression: Acute chest pain, Uncontrolled hypertension Disposition: DISCHARGED TO HOME OR SELFCARE Is pt being admited?: No Does the pt Need Aspirin: No Condition: Stable Instructions: Chest Pain (ED), Hypertension (ED) Prescriptions: traMADol [Ultram 50 MG tab] 50 mg PO Q6HR PRN #10 tablet PRN Reason: Pain Referrals: PRIMARY CARE, [Primary Care Provider] - 3-5 Days Time of Disposition: 16:29
[2016-03-28] MEDS ORDERED: NACL ONE (10:52)
== END 2016-03-27 17:08 | disposition home or self-care (01) ==
LOC: ED 14:07
DX: R07.9 Chest pain, unspecified (principal); I10 Essential (primary) hypertension; I50.9 Heart failure, unspecified; K21.9 Gastro-esophageal reflux disease without esophagitis; M19.90 Unspecified osteoarthritis, unspecified site; Z79.82 Long term (current) use of aspirin; Z95.810 Presence of automatic (implantable) cardiac defibrillator
CPT/HCPCS: 36415; 71010; 80048; 83880; 84484; 85025; 93005; 93010

== ENCOUNTER 2016-03-30 08:41 | Emergency (ER) | payer SELFPAY ==
[2016-03-30 10:10] LABS: Basophils % (Auto) 0.6 % (0.0-1.8); Eosinophils % (Auto) 4.5 % (0.0-4.3); Hematocrit 43.7 % (35.5-45.6); Mean Corpuscular HGB Conc 32 % (32-34); Mean Corpuscular Hemoglobin 27 pg (28-32); Mean Corpuscular Volume 83 fl (84-94); Platelet Count 139 K/mm3 (140-440); Red Blood Count 5.28 M/mm3 (3.65-5.03); Red Cell Distribution Width 14.9 % (13.2-15.2); White Blood Count 5.8 K/mm3 (4.5-11.0)
[2016-03-30 10:21] LABS: Anion Gap 18 mmol/L; Blood Urea Nitrogen 15 mg/dL (9-20); Calcium 9.4 mg/dL (8.4-10.2); Carbon Dioxide 23 mmol/L (22-30); Glucose 90 mg/dL (75-100); Potassium 4.3 mmol/L (3.6-5.0); Sodium 137 mmol/L (137-145)
[2016-03-30] MEDS ORDERED: BENADRYL IV ONE (10:53)
[2016-03-30] MEDS ORDERED: REGLAN IV ONE (10:53)
[2016-03-30] MEDS ORDERED: NACL ONE (11:25)
--- NOTE | 2016-03-30 12:01 | Cat Scan Report ---
CRANIAL CT SCAN: Serial contiguous axial images were obtained through the cranium. Intravenous contrast material was not administered. The ventricles are normal in size and appearance. There is no mass effect or midline shift. No areas of abnormally increased or decreased attenuation are seen. No mass lesion is seen. The mastoid air cells and visualized portions of the sinuses are normal. IMPRESSION: Cranial CT scan within normal limits.
--- NOTE | 2016-03-30 12:02 | Emergency Department Report ---
ED General Adult HPI - General Chief complaint: High BP Stated complaint: ELEVATED BLOOD PRESSURE 210/120 Time Seen by Provider: 03/30/16 09:46 Source: patient, RN notes reviewed, old records reviewed Mode of arrival: Ambulatory Limitations: No Limitations - History of Present Illness Initial comments: Cardiology: Dr. Jose Past medical history: Cardiomyopathy, ejection fraction of 25-30%, mitral regurgitation, cardiac defibrillator, hypertension. This is a 55-year-old male. He is previously unknown to me. Patient presents to the ER complaining of headache, dizziness, requesting refill on his blood pressure medication. The headache is throbbing, and bitemporal. It is not sudden or thunderclap in nature. It did not reach maximal intensity within an hour. It is not the worse headache of his life. He reports chronic headaches, and increase in headache frequency recently. There is no chest pain. There is no shortness of breath. He reports that his blood pressure felt elevated, and he went to the [facility] [place] , and found to be 210/160, and came to the ER for further evaluation and management. He did not pass out. There is no chest pain. There is no new or different shortness of breath. There is no ataxia. Headache is intermittent, and has no exacerbating or relieving factors. Dizziness is intermittent, has no exacerbating or relieving factors. -: Gradual Location: head Radiation: non-radiation Severity scale (0 -10): 0 Quality: aching Consistency: intermittent Improves with: none Worsens with: none Associated Symptoms: denies: confusion, chest pain, cough, diaphoresis, fever/ chills, loss of appetite, nausea/vomiting, shortness of breath, syncope, weakness - Related Data Home Medications Medication Instructions Recorded Confirmed Last Taken Lisinopril [Zestril TAB] 2.5 mg PO QDAY 01/17/16 03/22/16 03/21/16 Furosemide [Lasix TAB] 40 mg PO QDAY 03/22/16 03/22/16 03/21/16 Isosorb Dinit/Hydralazine [Bidil 1 each PO TID 03/22/16 03/22/16 03/21/16 20/37.5MG] Previous Rx's Medication Instructions Recorded Last Taken Type Allopurinol [Zyloprim] 100 mg PO QDAY #30 tablet 07/30/15 03/21/16 Rx Aspirin [Aspirin BABY CHEW TAB] 81 mg PO QDAY #30 tab.chew 07/30/15 03/21/16 Rx Colchicine [Colcrys] 0.6 mg PO BID #14 tablet 12/31/15 03/21/16 Rx ALPRAZolam [Xanax TAB] 0.25 mg PO Q12HR PRN #30 tablet 03/24/16 Unknown Rx amLODIPine [Norvasc] 10 mg PO DAILY tablet 03/24/16 Unknown Rx traMADol [Ultram 50 MG tab] 50 mg PO Q6HR PRN #10 tablet 03/27/16 Unknown Rx AtorvaSTATin [Lipitor] 80 mg PO QHS #30 tablet 03/30/16 Unknown Rx Carvedilol [Coreg] 6.25 mg PO BID #60 tablet 03/30/16 Unknown Rx Allergies Allergy/AdvReac Type Severity Reaction Status Date / Time No Known Allergies Allergy Verified 07/14/14 22:55 ED Review of Systems ROS: Stated complaint: ELEVATED BLOOD PRESSURE 210/120 Other details as noted in HPI Constitutional: denies: fever Eyes: denies: vision change ENT: denies: epistaxis Respiratory: denies: cough Cardiovascular: denies: chest pain Gastrointestinal: denies: abdominal pain Genitourinary: denies: dysuria Musculoskeletal: denies: back pain Skin: denies: lesions Neurological: headache Psychiatric: as per HPI. denies: depression ED Past Medical Hx - Past Medical History Previous Medical History?: Yes Hx Hypertension: Yes Hx CVA: No Hx Heart Attack/AMI: No Hx Congestive Heart Failure: Yes Hx Diabetes: No Hx Deep Vein Thrombosis: No Hx Pulmonary Embolism: No Hx GERD: Yes (peptic ulcers) Hx Liver Disease: No Hx Renal Disease: No Hx Sickle Cell Disease: No Hx Arthritis: Yes Hx Headaches / Migraines: No Hx Seizures: No Hx Kidney Stones: No Hx Psychiatric Treatment: No Hx Asthma: No Hx COPD: No Hx Tuberculosis: No Hx HIV: No Additional medical history: "Heart problems". defibrillator implanted. knee arthritis - Surgical History Past Surgical History?: Yes Hx Coronary Stent: No Hx Open Heart Surgery: No Hx Pacemaker: No Hx Internal Defibrillator: Yes (2012) Hx Cholecystectomy: No Hx Appendectomy: No Hx Breast Surgery: No Additional Surgical History: abd surgery, defib - Social History Smoking Status: Never Smoker Substance Use Type: Prescribed - Medications Home Medications: Home Medications Medication Instructions Recorded Confirmed Last Taken Type Allopurinol [Zyloprim] 100 mg PO QDAY #30 tablet 07/30/15 03/22/16 03/21/16 Rx Aspirin [Aspirin BABY CHEW TAB] 81 mg PO QDAY #30 tab.chew 07/30/15 03/22/16 Rx Colchicine [Colcrys] 0.6 mg PO BID #14 tablet 12/31/15 03/22/16 03/21/16 Rx Lisinopril [Zestril TAB] 2.5 mg PO QDAY 01/17/16 03/22/16 03/21/16 History Furosemide [Lasix TAB] 40 mg PO QDAY 03/22/16 03/22/16 03/21/16 History Isosorb Dinit/Hydralazine [Bidil 1 each PO TID 03/22/16 03/22/16 03/21/16 History 20/37.5MG] ALPRAZolam [Xanax TAB] 0.25 mg PO Q12HR PRN #30 tablet 03/24/16 Unknown Rx amLODIPine [Norvasc] 10 mg PO DAILY tablet 03/24/16 Unknown Rx traMADol [Ultram 50 MG tab] 50 mg PO Q6HR PRN #10 tablet 03/27/16 Unknown Rx AtorvaSTATin [Lipitor] 80 mg PO QHS #30 tablet 03/30/16 Unknown Rx Carvedilol [Coreg] 6.25 mg PO BID #60 tablet 03/30/16 Unknown Rx ED Physical Exam - General Limitations: No Limitations General appearance: alert, in no apparent distress - Head Head exam: Present: atraumatic, normocephalic - Eye Eye exam: Present: normal appearance, PERRL, EOMI. Absent: nystagmus - ENT ENT exam: Present: normal exam, normal orophraynx, mucous membranes moist, normal external ear exam - Neck Neck exam: Present: normal inspection, full ROM. Absent: tenderness, meningismus - Respiratory Respiratory exam: Present: normal lung sounds bilaterally. Absent: respiratory distress, wheezes, rales, rhonchi, stridor, chest wall tenderness - Cardiovascular Cardiovascular Exam: Present: regular rate, normal rhythm, normal heart sounds. Absent: bradycardia, tachycardia, irregular rhythm, systolic murmur, diastolic murmur, rubs, gallop - GI/Abdominal GI/Abdominal exam: Present: soft, normal bowel sounds. Absent: distended, tenderness, guarding, rebound, rigid, pulsatile mass, hernia - Rectal Rectal exam: Present: deferred - Extremities Exam Extremities exam: Present: normal inspection, full ROM, normal capillary refill , other (mild chronic right medial and lateral ankle tenderness. There is no palpable cord. There is negative Homans sign. Of note, patient has been having chronic arthritic pain in this right ankle since March 2015.). Absent : pedal edema, joint swelling, calf tenderness - Back Exam Back exam: Present: normal inspection, full ROM. Absent: tenderness, CVA tenderness (R), CVA tenderness (L), muscle spasm, paraspinal tenderness, vertebral tenderness - Neurological Exam Neurological exam: Present: alert, oriented X3, normal gait, other (Extraocular movements intact. Tongue midline. No facial droop. Facial sensation intact to light touch in the V1, V2, V3 distribution bilaterally. 5 and 5 strength in 4 extremities.. Sensation is intact to light touch in 4 extremities.). Absent : motor sensory deficit - Psychiatric Psychiatric exam: Present: normal affect, normal mood - Skin Skin exam: Present: warm, dry, intact, normal color. Absent: rash ED Course Vital Signs 03/30/16 03/30/16 03/30/16 08:50 08:55 10:06 Temperature 98.5 F 98.5 F Pulse Rate 79 79 Respiratory 20 20 Rate Blood Pressure 149/106 150/101 Blood Pressure 141/88 [Left] O2 Sat by Pulse 100 100 Oximetry 03/30/16 03/30/16 03/30/16 10:15 10:16 10:30 Temperature Pulse Rate Respiratory 18 Rate Blood Pressure 158/94 145/98 Blood Pressure [Left] O2 Sat by Pulse 99 Oximetry 03/30/16 03/30/16 03/30/16 12:13 12:30 13:00 Temperature Pulse Rate Respiratory Rate Blood Pressure 153/104 143/110 141/106 Blood Pressure [Left] O2 Sat by Pulse Oximetry 03/30/16 03/30/16 03/30/16 13:30 14:00 14:30 Temperature Pulse Rate Respiratory Rate Blood Pressure 133/92 146/99 127/78 Blood Pressure [Left] O2 Sat by Pulse Oximetry 03/30/16 15:06 Temperature Pulse Rate Respiratory Rate Blood Pressure 127/78 Blood Pressure [Left] O2 Sat by Pulse Oximetry - Reevaluation(s) Reevaluation #1: 03/30/16 12:00 differential diagnosis: Migraine headache, tension headache, cluster headache, hypertension related headache, posterior circulation thrombosis/dissection Assessment and plan: 55-year-old male with nonspecific headache, nonspecific dizziness, extensive cardiac history. Currently has a GCS of 15, with an NIH score of 0, walks with a steady gait. Headache historically does not sound consistent with subarachnoid hemorrhage. There is no neck pain. There is no neck stiffness. Given reported history of hypertension, nonspecific symptoms, we will obtain noncontrast CT scan of the head, and CT angiogram to assess for occult disease. He will be treated symptomatically for his headache with Reglan. Patient is trying to figure out which medication he needs a refill on. He states his smoke room operator discontinued his Bidil because it was giving him headaches. Troponin ordered before my evaluation, patient has no chest pain or shortness of breath. Has recently had an ACS risk stratification in the hospital. I don' t suspect acute coronary syndrome, I don't believe the patient requires repeat evaluation for acute coronary syndrome at this time. 03/30/16 12:02 Reevaluation #2: 03/30/16 14:07 repeat neurologic examination unremarkable and unchanged. Blood pressure is improved. Patient feels symptomatically improved. CT scan of the head and neck are negative for acute disease. Patient requests refill on Coreg , 6.25 mg twice daily, atorvastatin, 80 mg each night. Patient will be discharged with a one-month refill on these prescription medications, he is instructed to follow up with his outpatient smoke room operator. Return precautions were extensively reviewed. of note, on multiple re-evaluations, the patient is noted to be speaking on a cellular phone, walking around without difficulty, and in no acute distress. 03/30/16 14:11 ED Medical Decision Making - Lab Data Result diagrams: 03/30/16 09:55 03/30/16 09:55 Vital Signs 03/30/16 03/30/16 03/30/16 08:50 08:55 10:06 Temperature 98.5 F 98.5 F Pulse Rate 79 79 Respiratory 20 20 Rate Blood Pressure 149/106 150/101 Blood Pressure 141/88 [Left] O2 Sat by Pulse 100 100 Oximetry 03/30/16 03/30/16 03/30/16 10:15 10:16 10:30 Temperature Pulse Rate Respiratory 18 Rate Blood Pressure 158/94 145/98 Blood Pressure [Left] O2 Sat by Pulse 99 Oximetry Lab Results 03/30/16 03/30/16 Range/Units 09:55 09:55 WBC 5.8 (4.5-11.0) K/mm3 RBC 5.28 H (3.65-5.03) M/mm3 Hgb 14.0 (11.8-15.2) gm/dl Hct 43.7 (35.5-45.6) % MCV 83 L (84-94) fl MCH 27 L (28-32) pg MCHC 32 (32-34) % RDW 14.9 (13.2-15.2) % Plt Count 139 L (140-440) K/mm3 Lymph % (Auto) 18.0 (13.4-35.0) % [place] % (Auto) 10.8 H (0.0-7.3) % Eos % (Auto) 4.5 H (0.0-4.3) % Baso % (Auto) 0.6 (0.0-1.8) % Lymph # 1.0 L (1.2-5.4) K/mm3 [place] # 0.6 (0.0-0.8) K/mm3 Eos # 0.3 (0.0-0.4) K/mm3 Baso # 0.0 (0.0-0.1) K/mm3 Seg Neutrophils % 66.1 (40.0-70.0) % Seg Neutrophils # 3.8 (1.8-7.7) K/mm3 Sodium 137 (137-145) mmol/L Potassium 4.3 (3.6-5.0) mmol/L Chloride 100.0 (98-107) mmol/L Carbon Dioxide 23 (22-30) mmol/L Anion Gap 18 mmol/L BUN 15 (9-20) mg/dL Creatinine 1.2 (0.8-1.5) mg/dL Estimated GFR > 60 ml/min BUN/Creatinine Ratio 12.50 % Glucose 90 (75-100) mg/dL Calcium 9.4 (8.4-10.2) mg/dL Troponin T < 0.010 (0.00-0.029) ng/mL - EKG Data -: EKG Interpreted by Me EKG shows normal: sinus rhythm Rate: normal - EKG Data When compared to previous EKG there are: no significant change Interpretation: unchanged when compared t 03/30/16 12:03 normal sinus, 64 bpm, left axis deviation, nonspecific T-wave abnormality, atrial enlargement, abnormal EKG, not morphologically consistent with STEMI, QTC slightly widened. Appears morphologically unchanged from prior EKG from March 2016. - Radiology Data Radiology results: report reviewed, image reviewed Noncontrast CT scan of the head is negative. CT angiogram of the neck is negative. CT angiogram of the head is negative. Critical care attestation.: If time is entered above; I have spent that time in minutes in the direct care of this critically ill patient, excluding procedure time. ED Disposition Clinical Impression: Headache, Hypertension Disposition: DISCHARGED TO HOME OR SELFCARE Is pt being admited?: No Does the pt Need Aspirin: No Condition: Stable Instructions: Hypertension (ED) Additional Instructions: Continue current outpatient medications. Take your blood pressure medications as directed. Follow-up with your private smoke room operator or primary care doctor within the next 2-3 weeks. Long-term complications of hypertension/elevated blood pressure include stroke, heart attack, disability, , paralysis, permanent loss of quality of life. Therefore it is for important to take your outpatient blood pressure medications. Take Motrin, or ibuprofen as needed for pain every 6 hours with food. This can be alternated with acetaminophen. Return to the ER right away with new pain, worsening pain, migration of pain, fevers or chills, intractable nausea or vomiting, inability to tolerate liquid feeds. Prescriptions: AtorvaSTATin [Lipitor] 80 mg PO QHS #30 tablet Carvedilol [Coreg] 6.25 mg PO BID #60 tablet Referrals: PRIMARY CAREMD [Primary Care Provider] - 3-5 Days AARTI RENE MD [Staff Physician] - 3-5 Days
--- NOTE | 2016-03-30 13:07 | Cat Scan Report ---
CT angiography of the neck with 3-D reconstructed images. Findings: The common carotid arteries are normal in caliber throughout. The bifurcation of both common carotid arteries is widely patent. The internal carotid arteries are normal in caliber with no significant plaque or stenosis. The vertebral arteries are symmetrical and normal in caliber. Impression: Normal CT angiography of the neck.
--- NOTE | 2016-03-30 13:15 | Cat Scan Report ---
CT angiography of the brain with 3-D reconstructed images. Findings: The internal carotid arteries are normal in caliber bilaterally. The internal carotid bifurcations are normal. The anterior and middle cerebral arteries appear normal. The distal vertebral arteries are symmetrical and patent with normal appearance of the basilar artery. The posterior cerebral arteries are unremarkable. There is no evidence of aneurysm or AVM. Impression: Normal CT angiography of the brain.
[2016-03-30] MEDS ORDERED: COREG PO ONE (14:14)
[2016-03-30] MEDS ORDERED: ZESTRIL PO ONE (14:14)
[2016-03-30 14:47] VITALS: BP 127/78
== END 2016-03-30 14:50 | disposition home or self-care (01) ==
LOC: ED 08:41
DX: I10 Essential (primary) hypertension (principal); R51 Headache; I50.9 Heart failure, unspecified; K21.9 Gastro-esophageal reflux disease without esophagitis
CPT/HCPCS: 36415; 70450; 70496; 70498; 80048; 84484; 85025; 93005; 93010; 96374; 96375; 99284; J1200; J2765; Q9967

== ENCOUNTER 2016-04-03 10:27 | Emergency (ER) | payer SELFPAY ==
--- NOTE | 2016-04-03 10:57 | Emergency Department Report ---
Chief Complaint: Chest Pain Stated Complaint: CHEST PAIN Time Seen by Provider: 04/03/16 10:45 - HPI History of Present Illness: 55-year-old male presents today with chest pain since 8 AM despairing. Positive for history of similar symptoms and was diagnosed with anxiety attacks. Patient states that he has a defibrillator and a pacemaker. Patient states that since this morning she still can't lisinopril, carvedilol, 4 baby aspirins and alprazolam 0.25 mg. Also complaining of headache. Denies shortness of breath, nausea, vomiting, abdominal pain. - ROS Review of Systems: Per HPI - Exam Vital Signs: Vital Signs 04/03/16 10:39 Temperature 97.6 F Pulse Rate 80 Respiratory 20 Rate Blood Pressure 148/101 O2 Sat by Pulse 100 Oximetry Physical Exam: General: 55-year-old male in mild to moderate distress. Well-developed, well- nourished. CV: Regular rate and rhythm. Lungs: Clear to auscultation bilaterally. MSE screening note: Focused history and physical exam performed. Due to findings the following was ordered: ED Disposition for MSE Condition: Stable
[2016-04-03 11:19] LABS: Basophils % (Auto) 0.8 % (0.0-1.8); Eosinophils % (Auto) 2.9 % (0.0-4.3); Hematocrit 41.4 % (35.5-45.6); Hemoglobin 13.6 gm/dl (11.8-15.2); Mean Corpuscular HGB Conc 33 % (32-34); Mean Corpuscular Hemoglobin 27 pg (28-32); Mean Corpuscular Volume 81 fl (84-94); Platelet Count 154 K/mm3 (140-440); Red Blood Count 5.13 M/mm3 (3.65-5.03); Red Cell Distribution Width 15.4 % (13.2-15.2); White Blood Count 4.9 K/mm3 (4.5-11.0)
[2016-04-03 11:37] LABS: Creatine Kinase MB 8.3 ng/mL (0.0-4.0)
[2016-04-03 11:38] LABS: Anion Gap 20 mmol/L; BUN/Creatinine Ratio 17.69; Blood Urea Nitrogen 23 mg/dL (9-20); Calcium 9.2 mg/dL (8.4-10.2); Carbon Dioxide 23 mmol/L (22-30); Chloride 104.1 mmol/L (98-107); Creatine Kinase 305 units/L (55-170); Glucose 105 mg/dL (75-100); Lipase 26 units/L (13-60); Potassium 4.2 mmol/L (3.6-5.0); Sodium 143 mmol/L (137-145)
--- NOTE | 2016-04-03 12:02 | XRay Report ---
CHEST 2 VIEWS INDICATION: Chest pain. COMPARISON: 03/27/2016 FINDINGS: Frontal and lateral chest radiographs again suggest moderate cardiomegaly. Stable left sided dual chamber pacemaker. Slight left mid and right lower lung atelectasis. No pleural effusions or CHF. Aortic atherosclerotic calcifications. Stable bones. CONCLUSION: Slight atelectasis now noted with stable cardiomegaly and pacemaker, as described. Thank you for the opportunity to participate in this patient's care.
[2016-04-03 12:16] LABS: Cholesterol 82 mg/dL (50-199); HDL Cholesterol 38 mg/dL (40-59); LDL Cholesterol,Direct 34 mg/dL (50-130); Triglycerides 50 mg/dL (2-149)
--- NOTE | 2016-04-03 16:35 | Emergency Department Report ---
HPI - General Chief Complaint: Chest Pain Time Seen by Provider: 04/03/16 10:45 - HPI HPI: Room 3 The patient is a 55-year-old male presenting with a chief complaint of chest pain. The patient states this morning at 07:30 is lying in bed after taking his medications and he developed left chest tightness. Patient states he decided to get up to go eat but never was able to eat secondary to the tightness increasing. Patient states he turned decided to come to the ED or his tightness worsened even more. Patient admits to nausea but denies vomiting or diaphoresis. Patient says he developed some shortness of breath with the chest tightness. He states the chest tightness has resolved now he just has soreness in the left chest which she gives a score of 6/10. Patient states he had a cardiac catheterization approximately one week ago at [facility] Location: Chest Duration: Hours Quality: Tightness, soreness Severity: Currently 6/10 Modifying factors: [see above] Context: [see above] Mode of transportation: [not driving] ED Past Medical Hx - Past Medical History Hx Hypertension: Yes Hx Congestive Heart Failure: Yes Hx GERD: Yes (peptic ulcers) Hx Arthritis: Yes Additional medical history: "Heart problems". defibrillator implanted. knee arthritis - Surgical History Hx Internal Defibrillator: Yes (2012) Additional Surgical History: abd surgery, defib - Family History Family history: no significant - Social History Smoking Status: Never Smoker Substance Use Type: None - Medications Home Medications: Home Medications Medication Instructions Recorded Confirmed Last Taken Type Allopurinol [Zyloprim] 100 mg PO QDAY #30 tablet 07/30/15 03/22/16 03/21/16 Rx Aspirin [Aspirin BABY CHEW TAB] 81 mg PO QDAY #30 tab.chew 07/30/15 03/22/16 Rx Colchicine [Colcrys] 0.6 mg PO BID #14 tablet 12/31/15 03/22/16 03/21/16 Rx Lisinopril [Zestril TAB] 2.5 mg PO QDAY 01/17/16 03/22/16 03/21/16 History Furosemide [Lasix TAB] 40 mg PO QDAY 03/22/16 03/22/16 03/21/16 History Isosorb Dinit/Hydralazine [Bidil 1 each PO TID 03/22/16 03/22/16 03/21/16 History 20/37.5MG] ALPRAZolam [Xanax TAB] 0.25 mg PO Q12HR PRN #30 tablet 03/24/16 Unknown Rx amLODIPine [Norvasc] 10 mg PO DAILY tablet 03/24/16 Unknown Rx traMADol [Ultram 50 MG tab] 50 mg PO Q6HR PRN #10 tablet 03/27/16 Unknown Rx AtorvaSTATin [Lipitor] 80 mg PO QHS #30 tablet 03/30/16 Unknown Rx Carvedilol [Coreg] 6.25 mg PO BID #60 tablet 03/30/16 Unknown Rx Cyclobenzaprine [Flexeril] 10 mg PO TID PRN #10 tablet 04/03/16 Unknown Rx ED Review of Systems ROS: Stated complaint: CHEST PAIN Other details as noted in HPI Comment: All other systems reviewed and negative Constitutional: denies: diaphoresis Eyes: denies: eye pain, eye discharge, vision change ENT: denies: ear pain, throat pain Respiratory: shortness of breath Cardiovascular: chest pain Endocrine: no symptoms reported Gastrointestinal: nausea. denies: vomiting Genitourinary: denies: urgency, dysuria Musculoskeletal: myalgia. denies: back pain, joint swelling, arthralgia Skin: denies: rash, lesions Neurological: denies: headache, weakness, paresthesias Psychiatric: denies: anxiety, depression Hematological/Lymphatic: denies: easy bleeding, easy bruising Physical Exam - Physical Exam Vital Signs: Vital Signs 04/03/16 04/03/16 04/03/16 10:39 15:05 15:51 Temperature 97.6 F Pulse Rate 80 63 62 Respiratory 20 20 Rate Blood Pressure 148/101 128/96 O2 Sat by Pulse 100 100 Oximetry 04/03/16 04/03/16 04/03/16 15:52 15:54 15:56 Temperature Pulse Rate 71 60 66 Respiratory 12 17 22 Rate Blood Pressure 134/88 134/88 O2 Sat by Pulse 97 96 Oximetry 04/03/16 04/03/16 15:58 16:00 Temperature Pulse Rate 65 60 Respiratory 15 16 Rate Blood Pressure 134/88 133/86 O2 Sat by Pulse 98 97 Oximetry Physical Exam: GENERAL: The patient is well-developed well-nourished male lying on stretcher not appearing to be in acute distress. [] HEENT: Normocephalic. Atraumatic. Extraocular motions are intact. Patient has moist mucous membranes. NECK: Supple. Trachea midline CHEST/LUNGS: Clear to auscultation. There is no respiratory distress noted. HEART/CARDIOVASCULAR: Regular. There is no tachycardia. There is no gallop rub or murmur. ABDOMEN: Abdomen is soft, nontender. Patient has normal bowel sounds. There is no abdominal distention. SKIN: There is no rash. There is no edema. There is no diaphoresis. NEURO: The patient is awake, alert, and oriented. The patient is cooperative. The patient has normal speech MUSCULOSKELETAL: There is no evidence of acute injury. ED Course Vital Signs 04/03/16 04/03/16 04/03/16 10:39 15:05 15:51 Temperature 97.6 F Pulse Rate 80 63 62 Respiratory 20 20 Rate Blood Pressure 148/101 128/96 O2 Sat by Pulse 100 100 Oximetry 04/03/16 04/03/16 04/03/16 15:52 15:54 15:56 Temperature Pulse Rate 71 60 66 Respiratory 12 17 22 Rate Blood Pressure 134/88 134/88 O2 Sat by Pulse 97 96 Oximetry 04/03/16 04/03/16 15:58 16:00 Temperature Pulse Rate 65 60 Respiratory 15 16 Rate Blood Pressure 134/88 133/86 O2 Sat by Pulse 98 97 Oximetry - Consultations Consultation #1: 04/03/16 16:31 Cardiology paged 04/03/16 17:09 Case discussed with Jennie states she discussed the case with Dr. Brewer-ED lab values including troponins were discussed. She states the patient did not have a cardiac catheterization at [place] but did have a stress thallium performed 09/[address] Brewer says patient may be discharged home from the ED and keep his follow-up appointment with Dr. Damon CANELA Medical Decision Making - Lab Data Result diagrams: 04/03/16 11:06 04/03/16 11:06 Laboratory Tests 04/03/16 04/03/16 04/03/16 11:06 11:06 13:32 WBC 4.9 RBC 5.13 H Hgb 13.6 Hct 41.4 MCV 81 L MCH 27 L MCHC 33 RDW 15.4 H Plt Count 154 Lymph % (Auto) 21.5 [place] % (Auto) 9.8 H Eos % (Auto) 2.9 Baso % (Auto) 0.8 Lymph # 1.1 L [place] # 0.5 Eos # 0.1 Baso # 0.0 Seg Neutrophils % 65.0 Seg Neutrophils # 3.2 Sodium 143 Potassium 4.2 Chloride 104.1 Carbon Dioxide 23 Anion Gap 20 BUN 23 H Creatinine 1.3 Estimated GFR > 60 BUN/Creatinine Ratio 17.69 Glucose 105 H Calcium 9.2 Total Creatine Kinase 305 H CK-MB (CK-2) 8.3 H CK-MB (CK-2) Rel Index 2.7 Troponin T 0.034 H D 0.022 Triglycerides 50 Cholesterol 82 LDL Cholesterol Direct 34 L HDL Cholesterol 38 L Cholesterol/HDL Ratio 2.15 Lipase 26 - EKG Data -: EKG Interpreted by Me EKG shows normal: sinus rhythm Rate: normal - EKG Data When compared to previous EKG there are: no significant change Interpretation: unchanged when compared t (03/30/2016), other (PVC) - Radiology Data Radiology results: image reviewed (chest x-ray) interpreted by me: Chest [id number]. No focal infiltrates, no pneumothorax - Differential Diagnosis ACS, GERD, pericarditis, CHF Critical care attestation.: If time is entered above; I have spent that time in minutes in the direct care of this critically ill patient, excluding procedure time. ED Disposition Clinical Impression: Chest pain Disposition: DISCHARGED TO HOME OR SELFCARE Is pt being admited?: No Does the pt Need Aspirin: No Condition: Stable Instructions: Chest Pain (ED) Additional Instructions: Return to the emergency department immediately should you develop worsening symptoms, fever, inability to tolerate food or liquid or any other concerns. Prescriptions: Cyclobenzaprine [Flexeril] 10 mg PO TID PRN #10 tablet PRN Reason: Muscle Spasm Referrals: PRIMARY CARE, [Primary Care Provider] - 3-5 Days Time of Disposition: 17:21
[2016-04-03 17:29] VITALS: BP 149/97
== END 2016-04-03 17:29 | disposition home or self-care (01) ==
LOC: ED 10:27
DX: R07.89 Other chest pain (principal); I10 Essential (primary) hypertension; I50.9 Heart failure, unspecified; K21.9 Gastro-esophageal reflux disease without esophagitis; M19.90 Unspecified osteoarthritis, unspecified site
CPT/HCPCS: 36415; 71020; 80048; 80061; 82550; 82553; 83690; 84484; 85025; 93005; 93010; 99283

== ENCOUNTER 2016-04-11 06:25 | Inpatient (IN) | payer MEDICARE, OTHER ==
--- NOTE | 2016-04-11 07:26 | XRay Report ---
ROUTINE CHEST, TWO VIEWS: HISTORY: Shortness of breath. Mild cardiomegaly and pulmonary venous congestion are identified which have increased since 04/03/16. There is no evidence for pneumonia, CHF or pneumothorax. 2-lead pacemaker device remains in the same position. Normal bony thorax. Impression: Mild cardiomegaly and pulmonary venous congestion. IMPRESSION: Unremarkable chest x-ray.
[2016-04-11 07:36] LABS: Basophils % (Auto) 0.6 % (0.0-1.8); Eosinophils % (Auto) 3.3 % (0.0-4.3); Hematocrit 38.8 % (35.5-45.6); Hemoglobin 12.5 gm/dl (11.8-15.2); Mean Corpuscular HGB Conc 32 % (32-34); Mean Corpuscular Hemoglobin 26 pg (28-32); Mean Corpuscular Volume 81 fl (84-94); Platelet Count 169 K/mm3 (140-440); Red Blood Count 4.79 M/mm3 (3.65-5.03); Red Cell Distribution Width 15.2 % (13.2-15.2); White Blood Count 6.2 K/mm3 (4.5-11.0)
[2016-04-11 08:14] LABS: Anion Gap 20 mmol/L; BUN/Creatinine Ratio 15.45; Blood Urea Nitrogen 17 mg/dL (9-20); Calcium 9.3 mg/dL (8.4-10.2); Carbon Dioxide 21 mmol/L (22-30); Glucose 105 mg/dL (75-100); Potassium 4.2 mmol/L (3.6-5.0); Sodium 138 mmol/L (137-145)
--- NOTE | 2016-04-11 08:32 | Emergency Department Report ---
HPI - General Chief Complaint: Dyspnea/Respdistress Time Seen by Provider: 04/11/16 08:17 - HPI HPI: This is a 55-year-old Afro-[place]ir[place] male who presents to the emergency department with complaint of pain and swelling to the left lower extremity from the knee down for the past 3 days, with worsening of the symptoms last night. Patient then says he awoke with a dry throat and some shortness of breath. He denies any cough, fever, chest pain, nausea, vomiting or diaphoresis. He has not taken anything for symptoms prior to presentation. Patient has a history of gout, GERD, CHF, peptic ulcers, previous CO with coronary artery disease and AICD pacemaker. No recent travel or sick contacts at home. He does not have a primary care doctor but his director immunology is Dr. Jose at [facility] cardiology. ED Past Medical Hx - Past Medical History Previous Medical History?: Yes Hx Hypertension: Yes Hx CVA: No Hx Heart Attack/AMI: No Hx Congestive Heart Failure: Yes Hx Diabetes: No Hx Deep Vein Thrombosis: No Hx Pulmonary Embolism: No Hx GERD: Yes (peptic ulcers) Hx Liver Disease: No Hx Renal Disease: No Hx Sickle Cell Disease: No Hx Arthritis: Yes (gout) Hx Headaches / Migraines: No Hx Seizures: No Hx Kidney Stones: No Hx Psychiatric Treatment: No Hx Asthma: No Hx COPD: No Hx Tuberculosis: No Hx HIV: No Additional medical history: "Heart problems". defibrillator/pacer. knee arthritis - Surgical History Hx Coronary Stent: No Hx Open Heart Surgery: No Hx Pacemaker: No Hx Internal Defibrillator: Yes (2012) Hx Cholecystectomy: No Hx Appendectomy: No Hx Breast Surgery: No Additional Surgical History: abd surgery, defib/pacer - Social History Smoking Status: Never Smoker Substance Use Type: None - Medications Home Medications: Home Medications Medication Instructions Recorded Confirmed Last Taken Type Lisinopril [Zestril TAB] 2.5 mg PO QDAY 01/17/16 04/11/16 03/21/16 History Furosemide [Lasix TAB] 40 mg PO QDAY 03/22/16 04/11/16 03/21/16 History AtorvaSTATin [Lipitor] 80 mg PO QHS #30 tablet 03/30/16 04/11/16 Unknown Rx Carvedilol [Coreg] 6.25 mg PO BID #60 tablet 03/30/16 04/11/16 Unknown Rx Spironolactone [Aldactone] 25 mg PO DAILY 04/11/16 04/11/16 Unknown History ED Review of Systems ROS: Stated complaint: ANNABEL/CHEST PAIN/L LEG PAIN Other details as noted in HPI Comment: All other systems reviewed and negative Constitutional: denies: chills, fever Eyes: denies: eye pain, eye discharge, vision change ENT: denies: ear pain, dental pain Respiratory: shortness of breath. denies: cough Cardiovascular: edema. denies: palpitations Gastrointestinal: denies: abdominal pain, nausea, diarrhea Genitourinary: denies: urgency, dysuria Musculoskeletal: denies: back pain, joint swelling, arthralgia Skin: denies: rash, lesions Neurological: denies: headache, weakness, paresthesias Physical Exam - Physical Exam Vital Signs: Vital Signs 04/11/16 06:30 Temperature 97.7 F Pulse Rate 48 L Respiratory 20 Rate Blood Pressure 145/90 O2 Sat by Pulse 100 Oximetry Physical Exam: GENERAL: The patient is well-developed well-nourished. HEENT: Normocephalic. Atraumatic. Extraocular motions are intact. Patient has moist mucous membranes. Pupils equal reactive to light bilaterally. NECK: Supple. Trachea is midline. CHEST/LUNGS: Clear to auscultation. There is no respiratory distress noted. HEART/CARDIOVASCULAR: Regular. There is no tachycardia. There is no gallop rub or murmur. ABDOMEN: Abdomen is soft, nontender. Patient has normal bowel sounds. There is no abdominal distention. SKIN: There is no rash. 1-2+ pitting edema of the bilateral lower extremities. NEURO: The patient is awake, alert, and oriented. The patient is cooperative. The patient has no focal neurologic deficits. The patient has normal speech. MUSCULOSKELETAL: There is no tenderness or deformity. There is no limitation range of motion. There is no evidence of acute injury. ED Course Vital Signs 04/11/16 06:30 Temperature 97.7 F Pulse Rate 48 L Respiratory 20 Rate Blood Pressure 145/90 O2 Sat by Pulse 100 Oximetry ED Medical Decision Making - Lab Data Result diagrams: 04/11/16 07:20 04/11/16 07:20 - EKG Data -: EKG Interpreted by Me EKG shows normal: sinus rhythm (marked sinus arrythmia), axis (LAD), intervals ( prolonged DC interval indicating first-degree AV block), QRS complexes (LVH with mild QRS widening), ST-T waves Rate: normal - EKG Data When compared to previous EKG there are: changes noted (patient currently has sinus arrhythmia and prolonged DC interval) Interpretation: LVH (sinus arrhythmia, first-degree AV block, LVH with QRS widening) - Radiology Data Radiology results: report reviewed, image reviewed interpreted by me: Chest x-ray shows mild cardiomegaly and pulmonary vascular congestion but no overt pleural effusions, pneumonia or pneumothorax. Left lower extremity venous Doppler is negative for a DVT. CT angiography of the chest shows no acute chest CT abnormality or evidence of pulmonary embolism with various other stable findings that include old healed granulomatous disease, pacemaker, cardiomegaly and right hepatic lobe hypodensity. - Medical Decision Making 55-year-old male presents the emergency department with progressively worsening lower extremity swelling and some shortness of breath that is worse with orthopnea. However in the middle of his workup here in the hospital the patient developed some chest discomfort as well. Patient has a elevated BNP of greater than 1000. First 2 troponins have been negative. He had a slightly elevated and equivocal d-dimer of greater than [address] angiography of the chest was done. Chest x-ray was read as some vascular congestion and cardiomegaly. CTA does not show any pulmonary embolism, dissection or any acute process. The patient will be admitted to the hospital for serial troponins, telemetry and further evaluation and has been accepted for admission by the hospitalist, Dr. Barraza. - Differential Diagnosis CO, CHF, PE, pneumonia Critical Care Time: No Critical care attestation.: If time is entered above; I have spent that time in minutes in the direct care of this critically ill patient, excluding procedure time. ED Disposition Clinical Impression: Orthopnea CHF (congestive heart failure) Qualifiers: Congestive heart failure type: unspecified congestive heart failure type Congestive heart failure chronicity: acute on chronic Qualified Code(s): I50.9 - Heart failure, unspecified Chest pain Qualifiers: Chest pain type: unspecified Qualified Code(s): R07.9 - Chest pain, unspecified Disposition: OP ADMITTED IP TO THIS HOSP Is pt being admited?: Yes Does the pt Need Aspirin: Yes Condition: Stable Time of Disposition: 12:18
[2016-04-11] MEDS ORDERED: NACL ONE (09:39)
--- NOTE | 2016-04-11 10:29 | Cat Scan Report ---
CTA CHEST INDICATION: Shortness of breath, elevated d-dimer. COMPARISON: 07/28/2015 CTA. FINDINGS: Chest CTA performed following intravenous administration of 100 cc of Omnipaque 350. Rotational MIP's also obtained. Mild cardiomegaly, left upper anterior chest wall pacemaker with dual chamber leads creating streak artifact, few aortic arch atherosclerotic calcifications and few small right paratracheal and hilar calcified lymph node measuring up to 1.5 cm on axial image 95, series 2 again noted. Tiny right suprahilar calcified granuloma also again noted. Patent airway. No effusions. No aortic aneurysm or dissection, to the extent assessed. No suspicious pulmonary arterial filling defects. Normal thyroid. Stable 6 mm right upper lobe calcified granuloma, axial image 65. Slight bibasilar scarring. Slight air-filled distal esophageal prominence. Slight nonspecific bilateral perinephric stranding. Approximately 2.4 cm inferior right hepatic lobe peripherally hypodensity as on axial series 2, images [id number] partially imaged and also noted dating back to 07/15/2014 CT, suggesting a benign etiology, though remains incompletely characterize. Mild transverse colon diverticulosis. Unremarkable bones. CONCLUSION: No acute chest CT abnormality or evidence of pulmonary embolism with various other stable findings, including old healed granulomas disease, pacemaker, cardiomegaly and right hepatic lobe hypodensity, amongst others, as described. Thank you for the opportunity to participate in this patient's care.
--- NOTE | 2016-04-11 11:15 | Admit Criteria Form ---
Admission Criteria Documentation: PULMONARY DISEASE GRG Clinical Indications for Admission to Inpatient Care ( Place 'X' for any and all applicable criteria): Hospital admission is needed for appropriate care of the patient because of ANY ONE of the following(1): [ ]I. Impending or actual respiratory arrest ( Use Respiratory Failure Criteria for severe respiratory disease and long-term mechanical ventilation patients) (4) [ ]II. Severe airflow or ventilation abnormalities (not responsive to emergency and observation care treatment as appropriate) as indicated by ANY ONE of the following(5)(6)(7)(8) : [ ]a) PCO2 > 42 mm Hg (5.6 kPa) and pH < 7.35 (new) [ ]b) Documented PCO2 increase > 5 mm Hg (0.7 kPa) from disease baseline [ ]c) Airflow measurements[A] < 60% of previous best or predicted ( e.g., PEF <300 L/minute) despite intensive emergent treatment[B] [ ]d) Required respiratory treatments that are performable only in acute inpatient setting [x ]III. Severe respiratory findings (not responsive to emergency and observation care treatment as appropriate) including ANY ONE of the following(5)(8)(9): [x ]a) Respiratory distress as indicated by ALL of the following(5)(10) : [x ]i) Patient with ANY ONE of the following: [x ]1) Dyspnea (difficulty breathing) [ ]2) Abnormal breathing pattern (eg, chest retractions) [ ]3) Tachypnea [ ]4) Other evidence of difficulty breathing [x ]ii) Evidence of respiratory compromise indicated by ANY ONE of the following: [ ]1) Hypoxemia [ ]2) Altered mental status [ x]3) Other evidence of respiratory compromise (eg, pulmonary edema on chest x-ray) [ ]b) Stridor [ ]c) Gross hemoptysis(11) [ ]d) Acute cyanosis [ ]IV. High-risk pulmonary infection as indicated by ANY ONE of the following( 19)(20)(21)(22): [ ]a) Temperature less than 95 degrees F(35 degrees C) or greater than 103.1 degrees F(39.5 degrees C) [ ]b) Hemodynamic instability that remains after emergency or observation level care (as appropriate) [ ]c) Immunocompromised patient (eg, AIDS, post transplant, neutropenic) [ ]d) History of severe COPD [ ]e) History of severely symptomatic congestive heart failure [ ]f) Other high-risk comorbidity (eg, poorly controlled diabetes, cirrhosis, chronic renal insufficiency) [ ]g) Hypoxemia (new) [ ]h) Outpatient, observation, or recovery facility therapy has failed, is not appropriate, or is not feasible [ ]V. Severe atelectasis or lung collapse(15)(16) [ ]. Tuberculosis requiring inpatient treatment as indicated by ANY ONE of the following(17)(18): [ ]a) New positive acid-fast bacilli sputum smear [ ]b) Positive acid-fast bacilli smear (under current treatment), with ANY ONE of the following: [ ]i) Unexposed household contacts [ ]ii) Infants or immunosuppressed household contacts [ ]iii) Patient unable or unwilling to avoid exposing others [ ]iv) Severe immunocompromised patient (eg, AIDS, post transplant, neutropenic) [ ]VII. Empyema or lung abscess(13)(14) [ ]VIII. Severe pulmonary arterial hypertension or pulmonary vascular disease requiring inpatient care indicated by ANY ONE of the following(24)(25): [ ]a) Initiation or change of vasodilators (IV, subcutaneous, or inhaled) or other vasoactive medications needed [ ]b) IV anticoagulation needed (eg, immediate anticoagulation necessary, alternatives not appropriate) [ ]c) Arterial or pulmonary artery catheter monitoring needed due to infusion or other treatment [ ]IX. Chronic lung disease with severe deterioration (not responsive to emergency and observation care treatment as appropriate) as indicated by ANY ONE of the following (6)(12): [ ]a) SaO2 5% below baseline in patient with chronic hypoxemia [ ]b) New requirement for supplemental oxygen to keep SaO2 at baseline or acceptable level [ ]c) Required supplemental oxygen performable only in acute inpatient setting [ ]d) Severe airflow or ventilation abnormalities [ ]e) Rapid rate of exacerbation onset [ ]f) Previously mobile patient unable to walk between rooms [ ]g) Inability to eat or sleep due to dyspnea [ ]h) Altered mental status [ ]X. Cystic fibrosis with severe deterioration as indicated by ANY ONE of the following(26)(27): [ ]a) Severe exacerbation that does not respond to intensified home therapy [ ]b) Pneumonia [ ]c) Hemoptysis [ ]d) Atelectasis [ ]e) Pneumothorax [ ]f) Respiratory failure [ ]g) Severe exacerbation with patient unable to perform prescribed treatments at home [ ]XI. Severe right heart failure as indicated by ANY ONE of the following(24) (25): [ ]a) Increasing organ failure (eg, liver congestion with significant and worsening or new elevation of transaminases) [ ]b) Anasarca [ ]c) Angina that requires inpatient care (eg, not treatable in emergency or observation level of care) [ ]d) Respiratory distress [ ]e) Syncope [ ]f) SBP < 90 mm Hg (new) [ ]XII. Injury requiring inpatient care (medical) as indicated by ANY ONE of the following(28): [ ]a) Significant inhalation injury (eg, smoke inhalation, other toxic inhalation) (29)(30)(31) [ ]b) Airway obstruction that remains or is unstable after emergency or observation level care(32) [ ]c) Severe pain requiring acute inpatient management [ ]d) Lung contusion [ ]e) Bronchial tree injury [ ]f) Air or fat emboli(33) [ ]g) Other injury not treatable in emergency or observation level care (eg, hemothorax) (34) [ ]XIII. Pulmonary hemorrhage or significant hemoptysis(11)(35)(36) [ ]XIV. Inpatient palliative care needed[C](37)(38)(39)(40) [ ]XV. Complications of lung transplant (eg, rejection, failure, respiratory infection) (23) [ ]XVI. Pulmonary Disease and ANY ONE of the following: [ ]a) General Admission Criteria [ ]b) Pediatric General Admission Criteria The original [facility] content created by [facility] has been revised. The portions of the content which have been revised are identified through the use of italic text or in bold, and [facility] has neither reviewed nor approved the modified material. All other unmodified content is copyright [facility]. Please see references footnoted in the original [facility] edition 2016
[2016-04-11] MEDS ORDERED: BABY ASPIRIN PO ONE (12:18)
[2016-04-11] MEDS ORDERED: HEPARIN ONE (14:43)
[2016-04-11] MEDS ORDERED: BABY ASPIRIN ONE (14:43)
[2016-04-11] MEDS: HEPARIN SUB-Q SCH ×2 (14:50→21:30)
[2016-04-11] MEDS ORDERED: ZOFRAN ONE (20:03)
[2016-04-11] MEDS ORDERED: DILAUDID ONE (20:03)
[2016-04-11] MEDS: DILAUDID IV PRN ×2 (20:11→23:35)
[2016-04-11] MEDS: ZOFRAN IV PRN ×2 (20:13→23:35)
--- NOTE | 2016-04-11 22:59 | History and Physical Report ---
History of Present Illness Date of examination: 04/11/16 Date of admission: 04/11/16 12:18 Chief complaint: Chief complaint: Increasing shortness of breath for 2 days History of present illness: History of present illness: 55-year-old -[place] male with history of CHF hypertension defibrillator with pacer placement comes in for increasing shortness of breath for 2 days. Patient had multiple admissions in the last 2- 3 months. Patient had a stress test 4 weeks ago and was negative.. Patient complains of shortness of breath on minimal exertion and and lying down all also. Patient has class XLVII NYHA symptoms. Also swelling of both the legs from knee below. Patient cannot walk more than 20 steps without shortness of breath. No fever no chills. No cough. Past History Past Medical History: heart failure, hypertension, hyperlipidemia Past Surgical History: Other (pacemaker insertion defibrillator placement) Medications and Allergies Allergies Allergy/AdvReac Type Severity Reaction Status Date / Time No Known Allergies Allergy Verified 07/14/14 22:55 Home Medications Medication Instructions Recorded Confirmed Last Taken Type Lisinopril [Zestril TAB] 2.5 mg PO QDAY 01/17/16 04/11/16 03/21/16 History Furosemide [Lasix TAB] 40 mg PO QDAY 03/22/16 04/11/16 03/21/16 History AtorvaSTATin [Lipitor] 80 mg PO QHS #30 tablet 03/30/16 04/11/16 Unknown Rx Carvedilol [Coreg] 6.25 mg PO BID #60 tablet 03/30/16 04/11/16 Unknown Rx Spironolactone [Aldactone] 25 mg PO DAILY 04/11/16 04/11/16 Unknown History Active Meds: Active Medications Heparin Sodium (Porcine) (Heparin) 5,000 unit SUB-Q Q8HR JUD Last Admin: 04/11/16 21:30 Dose: 5,000 unit Hydromorphone HCl (Dilaudid) 1 mg IV Q3H PRN PRN Reason: Pain , Severe (7-10) Last Admin: 04/11/16 20:11 Dose: 1 mg Ondansetron HCl (Zofran) 4 mg IV Q3H PRN PRN Reason: Nausea And Vomiting Last Admin: 04/11/16 20:13 Dose: 4 mg Review of Systems Constitutional: no weight loss, no weight gain, no fever, no chills Ears, nose, mouth and throat: no ear pain, no ear discharge, no nasal congestion , no nasal discharge, no sore throat Cardiovascular: chest pain, shortness of breath, dyspnea on exertion, paroxysmal nocturnal dyspnea Respiratory: congestion, no cough with sputum, no excessive sputum, no shortness of breath, no dyspnea on exertion Gastrointestinal: no nausea, no vomiting, no diarrhea, no constipation, no change in bowel habits Genitourinary Male: no flank pain, no urinary frequency, no urinary hesitancy, no nocturia Musculoskeletal: no neck stiffness, no neck pain Integumentary: no rash, no pruritis, no redness Neurological: no head injury, no seizures, no syncope Psychiatric: no suicidal ideation, no depression Endocrine: no polyphagia, no polydipsia, no polyuria, no nocturia Hematologic/Lymphatic: no easy bruising, no easy bleeding Allergic/Immunologic: no urticaria, no allergic rhinitis, no wheezing Exam - Constitutional Vitals: Temp Pulse Resp BP Pulse Ox 97.5 F L 67 20 132/89 98 04/11/16 22:08 04/11/16 22:08 04/11/16 22:08 04/11/16 22:08 04/11/16 22:08 General appearance: Present: no acute distress, well-nourished - EENT Eyes: Present: PERRL ENT: hearing intact, clear oral mucosa - Neck Neck: Present: supple, normal ROM - Respiratory Respiratory effort: normal Respiratory: bilateral: CTA - Cardiovascular Heart Sounds: Present: S1 & S2. Absent: rub, click - Extremities Extremities: pulses symmetrical, No edema Extremity abnormal: edema (tiffany oedal edema) Peripheral Pulses: within normal limits - Abdominal General gastrointestinal: Present: soft, non-tender, non-distended, normal bowel sounds Male genitourinary: Present: normal - Integumentary Integumentary: Present: clear, warm, dry - Musculoskeletal Musculoskeletal: gait normal, strength equal bilaterally - Psychiatric Psychiatric: appropriate mood/affect, intact judgment & insight - Neurologic Neurologic: CNII-XII intact, moves all extremities Results - Labs CBC & Chem 7: 04/11/16 07:20 04/11/16 07:20 Labs: Laboratory Last Values WBC 6.2 K/mm3 (4.5-11.0) 04/11/16 07:20 RBC 4.79 M/mm3 (3.65-5.03) 04/11/16 07:20 Hgb 12.5 gm/dl (11.8-15.2) 04/11/16 07:20 Hct 38.8 % (35.5-45.6) 04/11/16 07:20 MCV 81 fl (84-94) L 04/11/16 07:20 MCH 26 pg (28-32) L 04/11/16 07:20 MCHC 32 % (32-34) 04/11/16 07:20 RDW 15.2 % (13.2-15.2) 04/11/16 07:20 Plt Count 169 K/mm3 (140-440) 04/11/16 07:20 Lymph % (Auto) 13.2 % (13.4-35.0) L 04/11/16 07:20 Dubois % (Auto) 11.8 % (0.0-7.3) H 04/11/16 07:20 Eos % (Auto) 3.3 % (0.0-4.3) 04/11/16 07:20 Baso % (Auto) 0.6 % (0.0-1.8) 04/11/16 07:20 Lymph # 0.8 K/mm3 (1.2-5.4) L 04/11/16 07:20 Dubois # 0.7 K/mm3 (0.0-0.8) 04/11/16 07:20 Eos # 0.2 K/mm3 (0.0-0.4) 04/11/16 07:20 Baso # 0.0 K/mm3 (0.0-0.1) 04/11/16 07:20 Seg Neutrophils % 71.1 % (40.0-70.0) H 04/11/16 07:20 Seg Neutrophils # 4.4 K/mm3 (1.8-7.7) 04/11/16 07:20 D-Dimer 586.01 ng/mlDDU (0-234) H 04/11/16 08:27 Sodium 138 mmol/L (137-145) 04/11/16 07:20 Potassium 4.2 mmol/L (3.6-5.0) 04/11/16 07:20 Chloride 101.0 mmol/L (98-107) 04/11/16 07:20 Carbon Dioxide 21 mmol/L (22-30) L 04/11/16 07:20 Anion Gap 20 mmol/L 04/11/16 07:20 BUN 17 mg/dL (9-20) 04/11/16 07:20 Creatinine 1.1 mg/dL (0.8-1.5) 04/11/16 07:20 Estimated GFR > 60 ml/min 04/11/16 07:20 BUN/Creatinine Ratio 15.45 % 04/11/16 07:20 Glucose 105 mg/dL (75-100) H 04/11/16 07:20 Calcium 9.3 mg/dL (8.4-10.2) 04/11/16 07:20 Troponin T < 0.010 ng/mL (0.00-0.029) 04/11/16 11:04 NT-Pro-B Natriuret Pep 1129 pg/mL (0-900) H 04/11/16 07:20 - Imaging and Cardiology Imaging and Cardiology: - EKG Data -: EKG shows normal: sinus rhythm (marked sinus arrythmia), axis (LAD), intervals ( prolonged NM interval indicating first-degree AV block), QRS complexes (LVH with mild QRS widening), ST-T waves Rate: normal EKG Interpreted by Me - EKG Data When compared to previous EKG there are: changes noted (patient currently has sinus arrhythmia and prolonged NM interval) Interpretation: LVH (sinus arrhythmia, first-degree AV block, LVH with QRS widening) - Radiology Data Radiology results: report reviewed, image reviewed interpreted by me: Chest x-ray shows mild cardiomegaly and pulmonary vascular congestion but no overt pleural effusions, pneumonia or pneumothorax. Left lower extremity venous Doppler is negative for a DVT. CT angiography of the chest shows no acute chest CT abnormality or evidence of pulmonary embolism with various other stable findings that include old healed granulomatous disease, pacemaker, cardiomegaly and right hepatic lobe hypodensity. Assessment and Plan Advance Directives: Yes Reason for no VTE Prophylaxis: Anticoagulant allergy Plan of care discussed with patient/family: Yes - Patient Problems (1) Acute on chronic systolic heart failure Current Visit: No Status: Acute Plan to address problem: Cont Lasix at 80 q12 (2) ARF (acute renal failure) Current Visit: No Status: Acute Qualifiers: Acute renal failure type: A Plan to address problem: iv fluids for now (3) Hypertension Current Visit: No Status: Chronic Qualifiers: Hypertension type: essential hypertension Qualified Code(s): I10 - Essential (primary) hypertension Plan to address problem: cont coreg 6.25 bid Lisinopri 5 mg po qday (4) Chest pain Current Visit: Yes Status: Acute Qualifiers: Chest pain type: unspecified Qualified Code(s): R07.9 - Chest pain, unspecified Plan to address problem: Extensiv w/u done including Lexiscan No Lexiscan as it was done recently 1 mth ago in outpatient settong.]\ (5) DVT prophylaxis Current Visit: Yes Status: Acute Plan to address problem: On lovenox sq qd
[2016-04-12] MEDS ORDERED: MORPHINE IV ONE (04:24)
[2016-04-12] MEDS: ZOFRAN IV PRN (04:43)
[2016-04-12] MEDS: LASIX IV SCH ×2 (06:28→17:00)
[2016-04-12] MEDS: HEPARIN SUB-Q SCH ×3 (06:28→21:53)
[2016-04-12] MEDS: DILAUDID IV PRN ×2 (11:41→23:39)
[2016-04-12] MEDS ORDERED: COREG PO SCH (16:00)
[2016-04-12] MEDS ORDERED: ALDACTONE PO SCH (16:00)
[2016-04-12] MEDS: ZESTRIL PO SCH (17:00)
[2016-04-12] MEDS: ALDACTONE PO SCH (17:02)
--- NOTE | 2016-04-12 19:14 | Progress Note ---
Assessment and Plan Assessment and plan: 1. Acute exacerbation of systolic heart failure Per last ECHO EF 30-35 % CXR with findings sugestive of vasc congestion, BNP elevated On BB, ACEI, diurectics, Lasix and Spironolactone Lasix switched to iv and dose increased Monitor I/Os 2. CAD History of OR and AICD placement On BB, ACEI, statin MPI in 2014 with fixed defect,but no reversible ischemia 3. Hypertension BP controlled on above mentioned medications 4. Edema LE L>R Doppler LLE excluded DVT/SVT ?Gout flare 5. GERD Pepcid 6. Obesity Counseled regarding importance of losing weight and lifestyle changes 7. DVT prophylaxis Heparin subcutaneous History Interval history: SOB slightly improved c/o left leg pain Hospitalist Physical - Constitutional Vitals: Temp Pulse Resp BP Pulse Ox 98.6 F 70 20 124/78 94 04/12/16 16:40 04/12/16 16:40 04/12/16 16:40 04/12/16 16:40 04/12/16 16:40 General appearance: Present: no acute distress, obese - EENT Eyes: Present: PERRL, EOM intact. Absent: scleral icterus, conjunctival injection - Neck Neck: Present: supple, normal ROM. Absent: masses or JVD - Respiratory Respiratory effort: normal Respiratory: bilateral: diminished, negative: rales, wheezing - Cardiovascular Rhythm: regular Heart Sounds: Present: S1 & S2. Absent: systolic murmur - Extremities Extremities: no ischemia Extremity abnormal: edema - Abdominal General gastrointestinal: soft, non-tender, non-distended, normal bowel sounds - Integumentary Integumentary: Present: warm, dry. Absent: jaundice, rash - Psychiatric Psychiatric: cooperative - Neurologic Neurologic: CNII-XII intact, no focal deficits Results - Labs CBC & Chem 7: 04/11/16 07:20 04/13/16 06:08 Labs: Laboratory Last Values WBC 6.2 K/mm3 (4.5-11.0) 04/11/16 07:20 RBC 4.79 M/mm3 (3.65-5.03) 04/11/16 07:20 Hgb 12.5 gm/dl (11.8-15.2) 04/11/16 07:20 Hct 38.8 % (35.5-45.6) 04/11/16 07:20 MCV 81 fl (84-94) L 04/11/16 07:20 MCH 26 pg (28-32) L 04/11/16 07:20 MCHC 32 % (32-34) 04/11/16 07:20 RDW 15.2 % (13.2-15.2) 04/11/16 07:20 Plt Count 169 K/mm3 (140-440) 04/11/16 07:20 Lymph % (Auto) 13.2 % (13.4-35.0) L 04/11/16 07:20 [place] % (Auto) 11.8 % (0.0-7.3) H 04/11/16 07:20 Eos % (Auto) 3.3 % (0.0-4.3) 04/11/16 07:20 Baso % (Auto) 0.6 % (0.0-1.8) 04/11/16 07:20 Lymph # 0.8 K/mm3 (1.2-5.4) L 04/11/16 07:20 [place] # 0.7 K/mm3 (0.0-0.8) 04/11/16 07:20 Eos # 0.2 K/mm3 (0.0-0.4) 04/11/16 07:20 Baso # 0.0 K/mm3 (0.0-0.1) 04/11/16 07:20 Seg Neutrophils % 71.1 % (40.0-70.0) H 04/11/16 07:20 Seg Neutrophils # 4.4 K/mm3 (1.8-7.7) 04/11/16 07:20 D-Dimer 586.01 ng/mlDDU (0-234) H 04/11/16 08:27 Sodium 138 mmol/L (137-145) 04/11/16 07:20 Potassium 4.2 mmol/L (3.6-5.0) 04/11/16 07:20 Chloride 101.0 mmol/L (98-107) 04/11/16 07:20 Carbon Dioxide 21 mmol/L (22-30) L 04/11/16 07:20 Anion Gap 20 mmol/L 04/11/16 07:20 BUN 17 mg/dL (9-20) 04/11/16 07:20 Creatinine 1.1 mg/dL (0.8-1.5) 04/11/16 07:20 Estimated GFR > 60 ml/min 04/11/16 07:20 BUN/Creatinine Ratio 15.45 % 04/11/16 07:20 Glucose 105 mg/dL (75-100) H 04/11/16 07:20 Calcium 9.3 mg/dL (8.4-10.2) 04/11/16 07:20 Troponin T < 0.010 ng/mL (0.00-0.029) 04/11/16 11:04 NT-Pro-B Natriuret Pep 1129 pg/mL (0-900) H 04/11/16 07:20 - Imaging and Cardiology EKG: image reviewed (NSR, LVH) Chest x-ray: image reviewed (pulm venous congestion) CT scan - chest: report reviewed (no PE, cardiomegaly, pacemaker)
[2016-04-12] MEDS: COREG PO SCH (21:53)
[2016-04-13] MEDS: HEPARIN SUB-Q SCH ×3 (06:22→21:13)
[2016-04-13] MEDS: LASIX IV SCH ×2 (06:22→18:04)
[2016-04-13 07:35] LABS: Anion Gap 18 mmol/L; BUN/Creatinine Ratio 13.07; Blood Urea Nitrogen 17 mg/dL (9-20); Calcium 9.3 mg/dL (8.4-10.2); Carbon Dioxide 27 mmol/L (22-30); Chloride 97.4 mmol/L (98-107); Glucose 95 mg/dL (75-100); Potassium 4.3 mmol/L (3.6-5.0); Sodium 138 mmol/L (137-145)
[2016-04-13] MEDS: ALDACTONE PO SCH (11:10)
[2016-04-13] MEDS: COREG PO SCH ×2 (11:11→21:13)
[2016-04-13] MEDS: ZESTRIL PO SCH (11:11)
[2016-04-13] MEDS ORDERED: NITROSTAT SL ONE (14:04)
--- NOTE | 2016-04-13 14:29 | Progress Note ---
Assessment and Plan Assessment and plan: 1. CP Acute chest pain with diaphoresis and dizziness; transient HR drop in 40-50s, immediately after that in 80s EKG showing SR, PVC, LVH Cardiac enzymes and electrolytes obtained SL Ntg and Asp given and symptoms subsided Will trend cardiac enzymes Consult cardiology - patient is followed by Dr. Elen Jose and had recent cardiac workup at [facility], [place] per his report 2. Acute exacerbation of systolic heart failure Per last ECHO EF 30-35 % On BB, ACEI, diurectics, Lasix and Spironolactone Lasix switched to iv and dose increased on admission to obtain negative fluid balance 3. CAD History of [place] and AICD placement On BB, ACEI, statin; aspirin added MPI in 2015 with fixed defect,but no reversible ischemia 4. Hypertension BP controlled on above mentioned medications 5. Gout flare Doppler LLE excluded DVT/SVT Usually takes Indomethacin for flare; advised to avoid it especially that he is already on diuretics on a regular basis Alternatives limited; will give short course corticosteroids even though may worsen CHF 6. GERD Pepcid 7. Obesity Counseled regarding importance of losing weight and lifestyle changes 8. DVT prophylaxis Heparin subcutaneous History Interval history: In the morning complained of right knee and right ankle pain Later suddenly developed chest tightness/pain with radiation to her his left shoulder associated with dizziness and diaphoresis; heart rate dropped in upper 40s-lower 50s; EKG shows SR with PVC, LVH, HR in 80s; SBP in 120s; CE, Mg and PO4 obtained; Ngt sublingual given and symptoms subsided Had recent cardiac workup at [facility], [place] (followed by Dr. Elen Jose with [facility]) Hospitalist Physical - Constitutional Vitals: Temp Pulse Resp BP Pulse Ox 97.8 F 80 20 145/81 94 04/13/16 07:50 04/13/16 07:50 04/13/16 07:50 04/13/16 11:11 04/13/16 07:50 General appearance: Present: mild distress, obese - EENT Eyes: Present: PERRL, EOM intact. Absent: scleral icterus, conjunctival injection - Neck Neck: Present: supple. Absent: enlarged thyroid, masses or JVD - Respiratory Respiratory effort: normal Respiratory: bilateral: diminished, negative: rhonchi, wheezing - Cardiovascular Rhythm: regular Heart Sounds: Present: S1 & S2. Absent: systolic murmur - Extremities Extremities: no ischemia Extremity abnormal: edema, other (right knee, ankle with warthm, edema, tenderness) - Abdominal General gastrointestinal: soft, non-tender, non-distended, normal bowel sounds - Integumentary Integumentary: Present: warm, dry. Absent: jaundice, rash - Psychiatric Psychiatric: cooperative - Neurologic Neurologic: CNII-XII intact, no focal deficits Results - Labs CBC & Chem 7: 04/11/16 07:20 04/13/16 06:08 Labs: Laboratory Last Values WBC 6.2 K/mm3 (4.5-11.0) 04/11/16 07:20 RBC 4.79 M/mm3 (3.65-5.03) 04/11/16 07:20 Hgb 12.5 gm/dl (11.8-15.2) 04/11/16 07:20 Hct 38.8 % (35.5-45.6) 04/11/16 07:20 MCV 81 fl (84-94) L 04/11/16 07:20 MCH 26 pg (28-32) L 04/11/16 07:20 MCHC 32 % (32-34) 04/11/16 07:20 RDW 15.2 % (13.2-15.2) 04/11/16 07:20 Plt Count 169 K/mm3 (140-440) 04/11/16 07:20 Lymph % (Auto) 13.2 % (13.4-35.0) L 04/11/16 07:20 [place] % (Auto) 11.8 % (0.0-7.3) H 04/11/16 07:20 Eos % (Auto) 3.3 % (0.0-4.3) 04/11/16 07:20 Baso % (Auto) 0.6 % (0.0-1.8) 04/11/16 07:20 Lymph # 0.8 K/mm3 (1.2-5.4) L 04/11/16 07:20 [place] # 0.7 K/mm3 (0.0-0.8) 04/11/16 07:20 Eos # 0.2 K/mm3 (0.0-0.4) 04/11/16 07:20 Baso # 0.0 K/mm3 (0.0-0.1) 04/11/16 07:20 Seg Neutrophils % 71.1 % (40.0-70.0) H 04/11/16 07:20 Seg Neutrophils # 4.4 K/mm3 (1.8-7.7) 04/11/16 07:20 D-Dimer 586.01 ng/mlDDU (0-234) H 04/11/16 08:27 Sodium 138 mmol/L (137-145) 04/13/16 06:08 Potassium 4.3 mmol/L (3.6-5.0) 04/13/16 06:08 Chloride 97.4 mmol/L (98-107) L 04/13/16 06:08 Carbon Dioxide 27 mmol/L (22-30) 04/13/16 06:08 Anion Gap 18 mmol/L 04/13/16 06:08 BUN 17 mg/dL (9-20) 04/13/16 06:08 Creatinine 1.3 mg/dL (0.8-1.5) 04/13/16 06:08 Estimated GFR > 60 ml/min 04/13/16 06:08 BUN/Creatinine Ratio 13.07 % 04/13/16 06:08 Glucose 95 mg/dL (75-100) 04/13/16 06:08 Calcium 9.3 mg/dL (8.4-10.2) 04/13/16 06:08 Troponin T < 0.010 ng/mL (0.00-0.029) 04/11/16 11:04 NT-Pro-B Natriuret Pep 1129 pg/mL (0-900) H 04/11/16 07:20
[2016-04-13 14:31] LABS: Creatine Kinase MB 2.3 ng/mL (0.0-4.0)
[2016-04-13 14:33] LABS: Magnesium 1.9 mg/dL (1.7-2.3)
--- NOTE | 2016-04-13 14:53 | Consultation ---
History of Present Illness Consult date: 04/13/16 Requesting physician: ANGEL COOLEY Consult reason: chest pain History of present illness: The patient is a 55 year old male who is followed by Dr. Jose in the office with a history of chronic systolic heart failure, nonischemic cardiomyopathy s/ p AICD, hypertension, gout who presented on 04/11/16 with complaints of left lower extremity pain and swelling as well as worsening shortness of breath and dyspnea ongoing for the past several days. He was admitted for acute on chronic systolic heart failure and gout flare. At admission, pt. did not report any chest pain and had 2 negative troponins. Earlier this afternoon, he experienced an episode of left sided chest pain that he describes as a sharp pain. He states the pain radiated to his right chest where it felt like a squeezing pain. Associated with dizziness. No shortness of breath, palpitations, nausea, vomiting, diaphoresis or syncope. His nurse reports that she checked his pulse and noted it was in the 40s although drafting technician shows HR in the 80s. Left heart cath in 2010 showed normal coronaries. Lexiscan thallium stress test done 03/15/16 at [facility], [place] was negative for ischemia. Echo done 01/2016 showed dilated cardiomyopathy, EF 25-30%, moderate MR. Past History Past Medical History: atrial fib, heart failure, hypertension, hyperlipidemia, other (non-ischemic cardiomyopathy, gout, anxiety) Past Surgical History: Other (AICD placement) Social history: full code. denies: smoking, alcohol abuse, prescription drug abuse, IV drug use Family history: no significant family history Medications and Allergies Allergies Allergy/AdvReac Type Severity Reaction Status Date / Time No Known Allergies Allergy Verified 07/14/14 22:55 Home Medications Medication Instructions Recorded Confirmed Last Taken Type Lisinopril [Zestril TAB] 2.5 mg PO QDAY 01/17/16 04/11/16 03/21/16 History Furosemide [Lasix TAB] 40 mg PO QDAY 03/22/16 04/11/16 03/21/16 History AtorvaSTATin [Lipitor] 80 mg PO QHS #30 tablet 03/30/16 04/11/16 Unknown Rx Carvedilol [Coreg] 6.25 mg PO BID #60 tablet 03/30/16 04/11/16 Unknown Rx Spironolactone [Aldactone] 25 mg PO DAILY 04/11/16 04/11/16 Unknown History Active Meds: Active Medications Atorvastatin Calcium (Lipitor) 40 mg PO QHS [facility] Last Admin: 04/12/16 21:53 Dose: 40 mg Carvedilol (Coreg) 6.25 mg PO BID [facility] Last Admin: 04/13/16 11:11 Dose: 6.25 mg Furosemide (Lasix) 80 mg IV 0600,1800 [facility] Last Admin: 04/13/16 06:22 Dose: 80 mg Heparin Sodium (Porcine) (Heparin) 5,000 unit SUB-Q Q8HR [facility] Last Admin: 04/13/16 06:22 Dose: 5,000 unit Hydromorphone HCl (Dilaudid) 1 mg IV Q3H PRN PRN Reason: Pain , Severe (7-10) Last Admin: 04/12/16 23:39 Dose: 1 mg Lisinopril (Zestril) 2.5 mg PO QDAY [facility] Last Admin: 04/13/16 11:11 Dose: 2.5 mg Ondansetron HCl (Zofran) 4 mg IV Q3H PRN PRN Reason: Nausea And Vomiting Last Admin: 04/12/16 04:43 Dose: 4 mg Spironolactone (Aldactone) 25 mg PO QDAY [facility] Last Admin: 04/13/16 11:10 Dose: 25 mg Review of Systems Constitutional: no fever, no chills Ears, nose, mouth and throat: no nasal congestion, no nasal discharge, no sinus pressure Cardiovascular: chest pain, orthopnea, lightheadedness, shortness of breath, dyspnea on exertion, leg edema, no palpitations Respiratory: shortness of breath, dyspnea on exertion, no cough, no cough with sputum, no congestion, no wheezing Gastrointestinal: no abdominal pain, no nausea, no vomiting, no diarrhea, no constipation Genitourinary Male: no dysuria, no hematuria Musculoskeletal: no neck stiffness, no neck pain, no myalgias Integumentary: no rash, no pruritis Neurological: no parathesias, no numbness, no tingling Endocrine: no cold intolerance, no heat intolerance Hematologic/Lymphatic: no easy bruising, no easy bleeding Allergic/Immunologic: no urticaria, no wheezing Physical Examination Vital Signs Temp Pulse Resp BP Pulse Ox 97.7 F 48 L 20 145/90 100 04/11/16 06:30 04/11/16 06:30 04/11/16 06:30 04/11/16 06:30 04/11/16 06:30 General appearance: no acute distress HEENT: Positive: Normocephaly, Mucus Membranes Moist Neck: Positive: neck supple, trachea midline Cardiac: Positive: Reg Rate and Rhythm, S1/S2 Lungs: Positive: clear to auscultation Neuro: Positive: Grossly Intact Abdomen: Positive: Soft, Active Bowel Sounds. Negative: Tender Skin: Positive: Clear. Negative: Rash Extremities: Present: normal. Absent: edema Results 04/11/16 07:20 04/13/16 06:08 Cardiac Enzymes 04/13/16 Range/Units 14:00 CK-MB (CK-2) 2.3 (0.0-4.0) ng/mL Comprehensive Metabolic Panel 04/13/16 Range/Units 06:08 Sodium 138 (137-145) mmol/L Potassium 4.3 (3.6-5.0) mmol/L Chloride 97.4 L (98-107) mmol/L Carbon Dioxide 27 (22-30) mmol/L BUN 17 (9-20) mg/dL Creatinine 1.3 (0.8-1.5) mg/dL Glucose 95 (75-100) mg/dL Calcium 9.3 (8.4-10.2) mg/dL - Imaging and Cardiology Echo: report reviewed EKG: image reviewed EKG interpretations - Telemetry EKG Rhythm: Sinus Rhythm - EKG Sinus rhythms and dysrhythmias: sinus rhythm QRS axis and voltage: left axis deviation Chamber hypertrophy or enlargement: left ventricular hypertro Assessment and Plan Atypical chest pain-->resolved troponin negative no acute EKG changes Echo 01/2016: dialted cardiomyopathy, EF 25-30%, moderate MR stress MPI 03/[address] [facility]: no ischemia [facility] 2010: normal coronaries Acute on chronic systolic heart failure currently euvolemic continue lasix, coreg, lisinopril Non-ischemic cardiomyopathy s/p St. Sai ICD Gout flare management per primary Hypertension Obesity Given resolution of atypical chest pain, negative troponin and recent negative stress test, recommend continuing medical management. Patient states he is moving to [place], [place] tomorrow. He is encouraged to establish care with a irrigationist in [place]. The patient has been seen in conjunction with Dr. Mar who agrees with the assessment and plan of care. Thank you Dr. Cooley for allowing us to participate in the care of this patient.
[2016-04-13] MEDS ORDERED: ASPIRIN PO ONE (15:23)
[2016-04-13] MEDS ORDERED: DELTASONE PO SCH (16:00)
[2016-04-13] MEDS ORDERED: PEPCID PO SCH (16:00)
[2016-04-13] MEDS: MORPHINE IV PRN ×2 (18:05→20:51)
[2016-04-14] MEDS: LASIX IV SCH (05:44)
[2016-04-14] MEDS: HEPARIN SUB-Q SCH (05:45)
[2016-04-14] MEDS: DILAUDID IV PRN (08:32)
[2016-04-14 09:43] VITALS: BP 156/105
[2016-04-14] MEDS ORDERED: BABY ASPIRIN PO SCH (10:00)
--- NOTE | 2016-04-14 11:03 | Discharge Summary ---
Providers - Providers Date of Admission: 04/11/16 12:18 Date of discharge: 04/14/16 Attending physician: ANGEL COOLEY 04/13/16 14:37 Consult to Physician [CONS] Urgent Consulting Provider: RYLEE SOARES Reason For Exam: a/c CHF, acute CP, BK Place consult to:: [facility] Notified:: yes Primary care physician: PONY RIDE ATTENDANT Hospitalization Condition: Stable Disposition: DISCHARGED TO HOME OR SELFCARE Time spent for discharge: 35 min Core Measure Documentation - Palliative Care Palliative Care/ Comfort Measures: Not Applicable - Heart Failure Discharge Requirements MARIA ALEJANDRA/ARB for LVSD if EF <40%: Yes Beta shen at discharge: Yes Exam - Constitutional Vitals: Temp Pulse Resp BP Pulse Ox 97.5 F L 77 18 156/105 97 04/14/16 09:41 04/14/16 09:41 04/14/16 09:41 04/14/16 09:41 04/14/16 09:41 Plan Activity: advance as tolerated Diet: low cholesterol, low salt Additional Instructions: Establish care with a cadiologist in [place] as soon as possible Follow up with: PRIMARY CARE,MD [Primary Care Provider] - 3-5 Days Prescriptions: AtorvaSTATin [Lipitor] 40 mg PO QHS #30 tablet Aspirin [Aspirin BABY CHEW TAB] 81 mg PO QDAY #30 tab.chew Carvedilol [Coreg] 6.25 mg PO BID #60 tablet Famotidine [Pepcid] 40 mg PO QDAY #10 tablet Furosemide [Lasix TAB] 40 mg PO BID #60 tablet Lisinopril [Zestril TAB] 2.5 mg PO QDAY #30 tablet predniSONE [Deltasone] 60 mg PO QDAY #9 tablet Spironolactone [Aldactone] 25 mg PO DAILY #30 tablet
--- NOTE | 2016-04-14 11:04 | Progress Note ---
Assessment and Plan Atypical chest pain-->resolved troponin negative no acute EKG changes Echo 01/2016: dilated cardiomyopathy, EF 25-30%, moderate MR stress MPI 03/2016 at [facility]: no ischemia [facility] 2010: normal coronaries Acute on chronic systolic heart failure currently euvolemic continue lasix, coreg, lisinopril Non-ischemic cardiomyopathy s/p St. Sai ICD Gout flare management per primary Hypertension Obesity Stable cardiac status. Continue current management. Patient is encouraged to establish care with a mule packer upon arrival in [place]. The patient has been seen in conjunction with Dr. Mar who agrees with the assessment and plan of care. Subjective Date of service: 04/14/16 Principal diagnosis: atypical chest pain Interval history: The patient is resting in bed. No further chest pain. Sinus rhythm on the monitor. He states that he is being discharged today. Objective Last Vital Signs Temp 97.5 F L 04/14/16 09:41 Pulse 77 04/14/16 09:41 Resp 18 04/14/16 09:41 BP 156/105 04/14/16 09:41 Pulse Ox 97 04/14/16 09:41 - Physical Examination General: No Apparent Distress HEENT: Positive: Normocephaly, Mucus Membranes Moist Neck: Positive: neck supple, trachea midline Cardiac: Positive: Reg Rate and Rhythm, S1/S2 Lungs: Positive: clear to auscultation Neuro: Positive: Grossly Intact Abdomen: Positive: Soft, Active Bowel Sounds. Negative: Tender Skin: Positive: Clear. Negative: Rash Extremities: Present: normal. Absent: edema - Labs and Meds Cardiac Enzymes 04/13/16 Range/Units 14:00 CK-MB (CK-2) 2.3 (0.0-4.0) ng/mL - Imaging and Cardiology EKG: image reviewed (NSR, LVH) Echo: report reviewed - Telemetry EKG Rhythm: Sinus Rhythm - EKG Sinus rhythms and dysrhythmias: sinus rhythm QRS axis and voltage: left axis deviation Chamber hypertrophy or enlargement: left ventricular hypertro
== END 2016-04-14 11:45 | disposition home or self-care (01) | DRG 292 ==
LOC: ED 06:25 → 4A 12:18
PROVIDERS: ADMIT Internal Medicine; ATTEND Internal Medicine
DX: I11.0 Hypertensive heart disease with heart failure (principal); N17.9 Acute kidney failure, unspecified; I50.23 Acute on chronic systolic (congestive) heart failure; I42.9 Cardiomyopathy, unspecified; K21.9 Gastro-esophageal reflux disease without esophagitis; M19.90 Unspecified osteoarthritis, unspecified site; I25.10 Atherosclerotic heart disease of native coronary artery without angina pectoris; E66.9 Obesity, unspecified; M10.9 Gout, unspecified; E78.5 Hyperlipidemia, unspecified; F41.9 Anxiety disorder, unspecified; Z68.33 Body mass index [BMI] 33.0-33.9, adult; Z95.810 Presence of automatic (implantable) cardiac defibrillator; I25.2 Old myocardial infarction
CPT/HCPCS: 36415; 71020; 71275; 80048; 82550; 82553; 83735; 83880; 84100; 84484; 85025; 85379; 93005; 93010; 96374; A9270-GY; J1170; J1644; J1940; J2270; J2405; J7512; Q9967